=== PATIENT | male | born 1965 | race Caucasian/White ===

== ENCOUNTER 2019-04-01 13:59 | Emergency (ER) | payer BC, SELFPAY ==
--- NOTE | ~2019-04-01 | XR_ITS ---
EXAMINATION: XR chest 2V DATE: 04/01/2019 14:37 INDICATION: Shortness of breath. TECHNIQUE: Frontal and lateral views of the chest were obtained. COMPARISON: Chest 2 views 06/16/2012 FINDINGS: The chest demonstrates clear lungs without pneumonia, pleural effusion, or pneumothorax. Th e heart size is normal. There are changes of heart valve replacement. IMPRESSION: 1. No acute cardiopulmonary disease. Reviewed, dictated and finalized at location A. CHER [employer] FEEDER
[2019-04-01 14:04] VITALS: BP 174/107; PULSE 93; RESP 16; TEMP 36.8; O2SAT 97
[2019-04-01 14:12] VITALS: PULSE 85
--- NOTE | 2019-04-01 14:19 | ECG_ITS ---
Measurements Intervals [place] Rate: 89 P: 38 WV: 270 QRS: 22 QRSD: 92 T: 28 QT: 356 QTc: 433 Interpretive Statements SINUS RHYTHM WITH FIRST DEGREE AV BLOCK POSSIBLE LEFT ATRIAL ENLARGEMENT ABNORMAL ECG Electronically Signed On 04-01-2019 19:38:52 RATING EXAMINER by Gt Lozada D.O.
--- NOTE | 2019-04-01 14:21 | ED.SOB ---
HPI - SOB/Dyspnea General Chief Complaint: Shortness of Breath/Dyspnea Stated Complaint: diff breathing Time Seen by Provider: 04/01/19 14:19 Source: patient Mode of arrival: ambulatory Limitations: no limitations History of Present Illness HPI Narrative: Pt is a 53 y/o male who presents to the ED with c/o SOB that started this morning. He notes that he has been having sinus congestion and drainage for the last week. Pt reports associated dry coughs and dry heaves. He denies CP, chest discomfort, ABD pain, or urinary Sx. Pt has a h/o a mechanical mitral valve and HTN. He saw his painting technician, Dr. Chavez 3 weeks ago and was started on a HTN medication. He denies a h/o asthma or COPD. Pt takes Warfarin as his anticoagulation therapy. He notes that his BLE are swollen as well. MD elicited complaint: shortness of breath Onset (ago): hour(s) (this morning) Context: recent illness (sinus congestion/drainage) Associated symptoms: cough and other (dry heaves) Related Data Home Medications Medication Instructions Recorded Confirmed lisinopril 04/01/19 warfarin 04/01/19 Allergies Allergy/AdvReac Type Severity Reaction Status Date / Time No Known Allergies Allergy Unknown Unverified 04/01/19 14:10 Review of Systems Review of Systems: All systems reviewed & are unremarkable except as noted in HPI and below Cardiovascular: Cardiovascular: Denies chest pain and Denies other (chest discomfort) Respiratory: Respiratory: Reports cough and Reports dyspnea Gastrointestinal: Gastrointestinal: Denies abdominal pain and Reports other (dry heaves) Genitourinary: Genitourinary: Denies other (urinary Sx) [facility] Past Medical History Medical History Afib Kidney stones On warfarin therapy Surgical History Surgical History H/O inguinal hernia repair H/O mitral valve replacement with mechanical valve Hx of tonsillectomy Family History Family History (Updated 07/31/17 @ 08:54 by DOCTOR UNKNOWN) Father Diabetes mellitus, Onset Age: 65 Family history of alcoholism, Onset Age: 65 Sibling Diabetes mellitus Hypertension Mother Family history of malignant neoplasm of breast in first degree relative, Onset Age: 70 Social History Social History (Reviewed 04/01/19 @ 14:37 by Bao Bettencourt Smoking status: Never smoker Alcohol intake: current Gender identity (if verbalized by the patient): Male Exam Narrative: Exam Narrative: GENERAL: Well-appearing, well-nourished, and in no acute distress. HEAD: Normocephalic, atraumatic. EYES: PERRLA and EOMI. ENT: Nares clear, no rhinorrhea or epistaxis. Mucous membranes moist. NECK: Supple. CHEST: Clear to auscultation. No respiratory distress. HEART: Regular rate and rhythm. No murmur heard. Normal peripheral pulses. ABDOMEN: Soft, nontender, nondistended, normal active bowel sounds. EXTREMITIES: Normal range of motion. No edema. SKIN: Warm, dry, no rash. NEURO: No focal deficits. Alert and oriented x3. PSYCH: Normal mood and affect. Course Course Emergency Course: Patient still remains asymptomatic, I did explain to him about his lab work, chest x-ray findings. At this time I do not see any obvious CHF or pneumonia. Symptoms more so consistent with bronchospasm from viral syndrome. Advised him to use inhalers as prescribed. Follow-up with his primary doctor. Vital Signs Vital signs: Vital Signs Temperature 36.8 C 04/01/19 14:04 Pulse Rate 93 04/01/19 14:04 Respiratory Rate 16 04/01/19 14:04 Blood Pressure 174/107 H 04/01/19 14:04 Pulse Oximetry 97 04/01/19 14:04 Temperature 36.8 C 04/01/19 14:04 Pulse Rate 90 04/01/19 15:10 Respiratory Rate 18 04/01/19 15:10 Blood Pressure 154/90 H 04/01/19 15:10 Pulse Oximetry 96 04/01/19 15:10 MDM - SOB/Dyspnea Lab Data Result diagrams: 04/01/19 14:21
[2019-04-01 14:25] VITALS: BP 167/103; PULSE 81; RESP 13; O2SAT 97
[2019-04-01 14:32] LABS: Basophils Percent Auto 0.3 % (0.2-1.2); Eosinophils Absolute Auto 0.1 K/mm3 (0-0.3); Eosinophils Percent Auto 1.3 % (0-4.4); Hematocrit 41.4 % (42.0-52.0); Hemoglobin 13.9 g/dL (14.0-18.0); Immature Granulocyte Absolute 0.02 K/mm3 (0.00-0.031); Immature Granulocyte Percent A 0.3 % (0-0.5); Lymphocytes Absolute Auto 1.96 K/mm3 (0.9-3.2); Lymphocytes Percent Auto 31.6 % (18.3-44.2); Mean Corpuscular HGB Conc 33.6 g/dl (32-36); Mean Corpuscular Hemoglobin 29.9 pg (26-34); Mean Platelet Volume 10.2 fl (7.4-10.4); Monocytes Absolute Auto 0.5 K/mm3 (0.1-0.6); Monocytes Percent Auto 8.5 % (2.6-8.5); Neutrophils Absolute Auto 3.6 K/mm3 (1.3-6.7); Platelet Count Result 205 k/mm3 (150-375); Red Blood Count 4.65 M/mm3 (4.6-6.20); Red Cell Distribution Width 12.5 % (11.5-14.5); White Blood Count 6.2 K/mm3 (4.5-10.0)
[2019-04-01 14:43] LABS: Blood Urea Nitrogen 15 mg/dL (9-20); Calcium 9.4 mg/dL (8.4-10.2); Carbon Dioxide 28 mmol/L (22-30); Chloride 102 mmol/L (98-107); Estimated CRCL calculation 96 ml/min; Estimated Glomerular Filt Rate > 60; Glucose 99 mg/dL (75-110); Potassium 4.1 mmol/L (3.4-5.0); Sodium 139 mmol/L (137-145)
[2019-04-01 15:10] VITALS: BP 154/90; PULSE 90; RESP 18; O2SAT 96
[2019-04-01 15:35] LABS: INR 2.7; Prothrombin Time 27.8 Seconds (11.1-14.7)
[2019-04-01 15:46] LABS: NT Pro B Type Natriuretic Pept 28 PG/ML (5-100)
[2019-04-01 15:47] LABS: D Dimer 0.27 ug/mL (<0.48)
[2019-04-01 16:37] VITALS: BP 154/90; PULSE 72; RESP 18; O2SAT 98
== END 2019-04-01 16:52 | disposition home or self-care (01) ==
PROVIDERS: Emergency Provider Family Medicine; PCP Family Medicine
DX: J98.01 Acute bronchospasm (principal); B97.89 Other viral agents as the cause of diseases classified elsewhere; Z95.2 Presence of prosthetic heart valve; I48.91 Unspecified atrial fibrillation; Z79.01 Long term (current) use of anticoagulants; Z87.442 Personal history of urinary calculi; I44.0 Atrioventricular block, first degree; R94.31 Abnormal electrocardiogram [ECG] [EKG]
CPT/HCPCS: 36415; 71046; 80048; 83880; 85025; 85380; 85610; 93005; 99284

== ENCOUNTER 2020-10-19 10:02 | Emergency (ER) | payer BC, SELFPAY ==
--- NOTE | 2020-10-19 10:07 | ED.BACK ---
HPI - Back Pain/Injury General Chief Complaint: Back Pain/Injury Stated Complaint: BACK PAIN Time Seen by Provider: 10/19/20 10:08 Source: patient, RN notes reviewed and old records reviewed Mode of arrival: ambulatory Limitations: no limitations History of Present Illness HPI Narrative: 55-year-old male presents to the [facility] with complaints of back pain since yesterday. Patient states that he was turning on a light switch when he felt a pull in the back. No loss or retention of bowel or bladder. No numbness or tingling in extremities. No treatment prior to arrival. Denies chest pain or abdominal pain. No nausea vomiting or diarrhea. No blurry vision or change in vision. Denies headaches. MD elicited complaint: back pain Pertinent past history: prior back pain Related Data Home Medications Medication Instructions Recorded Confirmed lisinopril 04/01/19 warfarin 04/01/19 Allergies Allergy/AdvReac Type Severity Reaction Status Date / Time No Known Allergies Allergy Unknown Unverified 04/01/19 14:10 Review of Systems Review of Systems: All systems reviewed & are unremarkable except as noted in HPI and below Constitutional: Constitutional: Reports no additional constitutional complaints, Denies fever(s) and Denies weakness Eyes: Eyes: Reports no additional eye complaints ENT: Reports system reviewed and no additional complaints, except as documented Cardiovascular: Cardiovascular: Reports no additional cardiovascular complaints and Denies chest pain Respiratory: Respiratory: Reports no additional respiratory complaints, Denies cough and Denies dyspnea Gastrointestinal: Gastrointestinal: Reports no additional gastrointestinal complaints, Denies abdominal pain, Denies nausea and Denies vomiting Musculoskeletal: Musculoskeletal: Reports as per HPI and Reports back pain Integumentary/Breasts: Skin/Breast: Reports system reviewed and no additional complaints, except as docu, Denies erythema and Denies rash Neurologic: Reports system reviewed and no additional complaints, except as documented, Denies headache(s), Denies focal weakness, Denies numbness and Denies weakness Psychiatric: Psychiatric: Reports no additional psychiatric complaints Allergic/Immunologic: Allergic/Immunologic: Reports no additional allergic/immunologic complaints PMFSH Past Medical History Medical History Afib Hypertension Kidney stones On warfarin therapy Surgical History Surgical History H/O inguinal hernia repair H/O mitral valve replacement with mechanical valve Hx of tonsillectomy Family History Family History Father Diabetes mellitus, Onset Age: 65 Family history of alcoholism, Onset Age: 65 Sibling Diabetes mellitus Hypertension Mother Family history of malignant neoplasm of breast in first degree relative, Onset Age: 70 Social History Social History Smoking status: Never smoker Alcohol intake: current Gender identity (if verbalized by the patient): Male Comments At the time of my signature, I reviewed and agree with the nursing past medical, surgical, social, and family history. There is no relevant family history pertinent to the patient complaint. Exam Const: General: healthy appearing, no acute distress and alert Nutritional Appearance: well nourished Orientation/consciousness: patient oriented x3 Limitations: no limitations HENMT: Head: normal to inspection Eyes: Conjunctivae: conjunctivae normal Pupils: Equal, round and reactive pupils present Neck: Neck: normal visual inspection, no lymphadenopathy and no meningeal signs Chest: Chest palpation & inspection: normal inspection of the chest Resp: Effort & Inspection: normal respiratory effort and no use of accessory
[2020-10-19 10:10] VITALS: BP 170/84; PULSE 63; RESP 16; TEMP 36.4; O2SAT 100
[2020-10-19 10:11] VITALS: BP 170/84; PULSE 63; RESP 16; TEMP 36.4; O2SAT 100
== END 2020-10-19 10:26 | disposition home or self-care (01) ==
PROVIDERS: Emergency Provider Nurse Practitioner; PCP Family Medicine
DX: S39.012A Strain of muscle, fascia and tendon of lower back, initial encounter (principal); X58.XXXA Exposure to other specified factors, initial encounter; I48.91 Unspecified atrial fibrillation; I10 Essential (primary) hypertension; Z79.01 Long term (current) use of anticoagulants; Z95.2 Presence of prosthetic heart valve
CPT/HCPCS: 99213; G0463

== ENCOUNTER 2021-12-11 10:58 | Emergency (ER) | payer BC, SELFPAY ==
[2021-12-11 11:05] VITALS: BP 153/101; PULSE 73; RESP 16; TEMP 36.7; O2SAT 98
--- NOTE | 2021-12-11 11:07 | ED.GENADULT ---
HPI - General Adult General Chief complaint: Unspecified Stated complaint: face swelling Time Seen by Provider: 12/11/21 11:09 Mode of arrival: ambulatory Limitations: no limitations History of Present Illness HPI narrative: 56-year-old male presents with concern for 3-day history of right-sided facial swelling. He reports he has been taking Benadryl every 6 hours yesterday with some improvement to the swelling of the right sided face, however under the eye remains swollen. He denies any pain. He denies dental pain or trauma. He denies swollen lips, swollen tongue, trouble breathing, itching, rash. Denies any history of allergic reactions. He reports trouble swallowing, drooling. He denies vision changes, eye pain, drainage from the eye. He denies any warmth, redness, discoloration. MD complaint: Facial swelling Related Data Home Medications Medication Instructions Recorded Confirmed lisinopril 10 mg tablet 04/01/19 warfarin 5 mg tablet 04/01/19 Allergies Allergy/AdvReac Type Severity Reaction Status Date / Time No Known Allergies Allergy Unknown Unverified 04/01/19 14:10 Review of Systems Review of Systems: CONSTITUTIONAL: Denies malaise, chills, sweats, or fever. EYES: Denies visual changes, redness, or discharge. ENT: Denies rhinorrhea, congestion, sinus pain, otalgia or sore throat. Reports right-sided facial swelling CARDIOVASCULAR: Denies chest pain, palpitations, or edema. RESPIRATORY: Denies dyspnea. GASTROINTESTINAL: Denies nausea, vomiting, diarrhea SKIN: Denies rash or itching. MUSCULOSKELETAL: Denies musculoskeletal pain or myalgia. NEUROLOGIC: Denies numbness, weakness, or headache. All systems reviewed & are unremarkable except as noted in HPI and below [facility] Past Medical History Medical History Afib Hypertension Kidney stones On warfarin therapy Surgical History Surgical History H/O inguinal hernia repair H/O mitral valve replacement with mechanical valve Hx of tonsillectomy Family History Family History Father Diabetes mellitus, Onset Age: 65 Family history of alcoholism, Onset Age: 65 Sibling Diabetes mellitus Hypertension Mother Family history of malignant neoplasm of breast in first degree relative, Onset Age: 70 Social History Social History Smoking status: Never smoker Alcohol intake: current Gender identity (if verbalized by the patient): Male Comments At time of signature, agree with nursing past medical, surgical, social and family history. There is no relevant family history pertinent to the presenting complaint Exam Narrative: GENERAL: Well-appearing, well-nourished, and in no acute distress. HEAD: Normocephalic, atraumatic. EYES: PERRLA, sclera clear, and EOMI. No nystagmus. Soft superficial edema noted below the right eye, no periorbital edema noted ENT: Nares clear, turbinates pink, no rhinorrhea or epistaxis. Mucous membranes moist. TM pearly poe with sharp light reflex bilaterally; no tragal tenderness. Oropharynx without erythema or lesions. Tonsils not enlarged and without exudate. No obstructed salivary gland noted. Mild superficial edema noted to the right face, mild tenderness upon palpation to the mid cheek near the teeth NECK: Supple. No lymphadenopathy. No jugular venous distension, thyromegaly, or carotid bruits. Carotids were easily palpable bilaterally. CHEST: No respiratory distress. Clear to auscultation. No bony deformities, no asymmetry. Speaks in full sentences. HEART: Regular rate and rhythm. No murmur heard. Normal peripheral pulses. ABDOMEN: Soft, nontender, nondistended, normal active bowel sounds, no palpable masses. EXTREMITIES: Normal range of motion. No edema. Normal strength and sensation. SKIN: Warm,
[2021-12-11] MEDS: methylPREDNISolone SOD SUCC 125 MG VIAL IM (11:21)
== END 2021-12-11 11:44 | disposition home or self-care (01) ==
PROVIDERS: Emergency Provider Nurse Practitioner
DX: R22.0 Localized swelling, mass and lump, head (principal); I48.91 Unspecified atrial fibrillation; I10 Essential (primary) hypertension; Z79.01 Long term (current) use of anticoagulants
CPT/HCPCS: 96372; 99213; G0463; J2930

== ENCOUNTER 2022-02-26 11:38 | Emergency (ER) | payer BC, SELFPAY ==
[2022-02-26 13:01] VITALS: BP 157/96; PULSE 78; RESP 16; TEMP 37.6; O2SAT 98
--- NOTE | 2022-02-26 13:33 | ED.URI ---
HPI - URI/Sore Throat General Chief Complaint: Upper Respiratory Infection Stated Complaint: fever, dizzy,cough Time Seen by Provider: 02/26/22 13:46 Source: patient and RN notes reviewed Mode of arrival: ambulatory Limitations: no limitations History of Present Illness HPI Narrative: 56 year old male presents with concern for cough, chest congestion, chest tightness. Reports symptoms started about 4 days ago and not improving. He reports he taking Robitussin. MD elicited complaint: fever and cough Related Data Home Medications Medication Instructions Recorded Confirmed lisinopril 10 mg tablet 10 mg PO DAILY 04/01/19 warfarin 5 mg tablet 5 mg PO DAILY 04/01/19 02/26/22 Allergies Allergy/AdvReac Type Severity Reaction Status Date / Time No Known Allergies Allergy Unknown Unverified 02/26/22 13:37 Review of Systems Review of Systems: CONSTITUTIONAL: Reports malaise, fever. EYES: Denies visual changes, redness, or discharge. ENT: Denies rhinorrhea, congestion, sinus pain, otalgia and sore throat. CARDIOVASCULAR: Denies chest pain, palpitations, or edema. RESPIRATORY: Reports cough, chest congestion. Denies dyspnea. GASTROINTESTINAL: Denies abdominal pain, nausea, vomiting, diarrhea SKIN: Denies rash or itching. MUSCULOSKELETAL: Reports myalgia. NEUROLOGIC: Denies headache. All systems reviewed & are unremarkable except as noted in HPI and below PMFSH Past Medical History Medical History Afib Hypertension Kidney stones On warfarin therapy Surgical History Surgical History H/O inguinal hernia repair H/O mitral valve replacement with mechanical valve Hx of tonsillectomy Family History Family History Father Diabetes mellitus, Onset Age: 65 Family history of alcoholism, Onset Age: 65 Sibling Diabetes mellitus Hypertension Mother Family history of malignant neoplasm of breast in first degree relative, Onset Age: 70 Social History Social History Smoking status: Never smoker Alcohol intake: current Gender identity (if verbalized by the patient): Male Comments At time of signature, agree with nursing past medical, surgical, social and family history. There is no relevant family history pertinent to the presenting complaint Exam Narrative: GENERAL: Nontoxic. And in no acute distress. HEAD: Normocephalic EYES: PERRLA, conjunctivae clear ENT: Nares clear. Mucous membranes moist. TM pearly poe with dull light reflex bilaterally; no tragal tenderness. Oropharynx not erythematous without lesions. Tonsils not enlarged and without exudate, no drooling, no hoarseness, no trismus, uvula midline. NECK: Supple. No lymphadenopathy CHEST: Clear to auscultation, breath sounds diminished on the left upper and lower. No wheezing, rhonchi, rales, or stridor. No respiratory distress, speaks in full sentences. HEART: Regular rate and rhythm. No murmur heard. SKIN: Warm, dry, no rash. NEURO: Alert and oriented x3. PSYCH: Normal mood and affect Course Course Emergency Course: Patient is aware of diagnosis, understands and agrees to treatment plan. Anticipatory guidance given. Patient agrees to follow-up as directed and is aware of reasons to seek care at the emergency department. Portions of this record may have been created with voice recognition software Level of Care: Express Care Visit Vital Signs Vital signs: Vital Signs Temperature 99.7 F H 02/26/22 13:01 Pulse Rate 78 02/26/22 13:01 Respiratory Rate 16 02/26/22 13:01 Blood Pressure 157/96 H 02/26/22 13:01 Pulse Oximetry 98 02/26/22 13:01 Temperature 99.7 F H 02/26/22 13:01 Pulse Rate 78 02/26/22 13:01 Respiratory Rate 16 02/26/22 13:01 Blood Pressure 157/96 H 02/26/22 13:01 Pulse Oximetry 98
== END 2022-02-26 13:56 | disposition home or self-care (01) ==
PROVIDERS: Emergency Provider Nurse Practitioner; PCP Physician Assistant
DX: J06.9 Acute upper respiratory infection, unspecified (principal); I48.91 Unspecified atrial fibrillation; I10 Essential (primary) hypertension; Z79.01 Long term (current) use of anticoagulants; Z95.2 Presence of prosthetic heart valve
CPT/HCPCS: 87804; 99213; G0463

== ENCOUNTER → 2023-05-03 11:07 | Outpatient (CLI) | payer OTHER, SELFPAY ==
--- NOTE | ~2023-05-03 | XR_ITS ---
EXAMINATION: XR hip RT 2V w AP pelvis DATE: 05/03/2023 11:27 INDICATION: Low back pain. Right hip pain. TECHNIQUE: An anteroposterior view of the pelvis and 2 views of right hip were obtained. COMPARISON: None. FINDINGS: Bone alignment is normal. No fracture. There is severe osteoarthritis of the hips. IMPRESSION: 1. Severe osteoarthritis of the hips. Reviewed, dictated and finalized at location A. IRON DIPPER
--- NOTE | ~2023-05-03 | XR_ITS ---
EXAMINATION: XR lumbar spine 2-3V DATE: 05/03/2023 11:27 INDICATION: Low back pain TECHNIQUE: Anteroposterior and lateral views of the lumbar spine, and cone-down lateral view of the l umbosacral junction were obtained. COMPARISON: None. FINDINGS: Bone alignment is normal. There is no fracture. There are 5 degrees of lumbar levocurvature . The vertebral body heights are maintained. There is mild loss of intervertebral disc space height a t L4-5. There is severe facet joint osteoarthritis of the mid and lower lumbar spine. An IVC filter i s noted. IMPRESSION: 1. Moderate lower lumbar spondylosis. Reviewed, dictated and finalized at location F. COLLECTION ASSOCIATE
== END ==
PROVIDERS: PCP Physician Assistant; Visit Provider Physician Assistant
DX: M47.896 Other spondylosis, lumbar region (principal); M16.0 Bilateral primary osteoarthritis of hip
CPT/HCPCS: 72100; 73502

== ENCOUNTER 2023-09-10 09:00 | Emergency (ER) | payer OTHER, SELFPAY ==
[2023-09-10 09:12] VITALS: O2SAT 97
--- NOTE | 2023-09-10 09:12 | ED.GENADULT ---
HPI - General Adult General Chief complaint: Upper Respiratory Infection Stated complaint: SOB Time Seen by Provider: 09/10/23 09:15 Source: patient, RN notes reviewed and old records reviewed Mode of arrival: ambulatory Limitations: no limitations History of Present Illness HPI narrative: patient with history of mitral valve replacement, atrial fibrillation, follows with Dr. Baumann for Cardiology, presents to [facility] with complaints of shortness of breath, leg swelling and fatigue worsening over the past week. He reports that he now has to sleep sitting up. States last night was worst his symptoms have been. He is not complaining of any chest pain. He reports symptoms worsened when lying down. He is compliant with warfarin, reports that he checked INR last night and it was 3.6. He does report that he has been having heart rate in the 30s and 40s for the past couple of days. Reports normal heart rate for him is 60-70. He is denying any chest pain on arrival. He is noted to be pale, clammy. 2+ edema bilateral lower extremities. Spouse is present Related Data Home Medications Medication Instructions Recorded Confirmed lisinopril 10 mg tablet 10 mg PO DAILY 04/01/19 05/03/23 warfarin 5 mg tablet 5 mg PO DAILY 04/01/19 05/03/23 Allergies Allergy/AdvReac Type Severity Reaction Status Date / Time No Known Allergies Allergy Unknown Verified 05/03/23 10:33 Review of Systems Review of Systems: All systems reviewed & are unremarkable except as noted in HPI and below Constitutional: Constitutional: Reports no additional constitutional complaints, Reports fatigue, Reports lethargy and Reports malaise ENT: Reports system reviewed and no additional complaints, except as documented and Reports dizziness Cardiovascular: Cardiovascular: Reports no additional cardiovascular complaints, Reports irregular heart rhythm, Reports lightheadedness, Reports dyspnea and Reports orthopnea Respiratory: Respiratory: Reports no additional respiratory complaints, Denies chest congestion and Reports dyspnea Gastrointestinal: Gastrointestinal: Reports no additional gastrointestinal complaints Hematologic/Lymphatic: Hematologic/Lymphatic: Reports as per HPI [facility] Past Medical History Medical History Afib Hypertension Kidney stones On warfarin therapy Surgical History Surgical History H/O inguinal hernia repair H/O mitral valve replacement with mechanical valve Hx of tonsillectomy Family History Family History Father Diabetes mellitus, Onset Age: 65 Family history of alcoholism, Onset Age: 65 Sibling Diabetes mellitus Hypertension Mother Family history of malignant neoplasm of breast in first degree relative, Onset Age: 70 Social History Social History Smoking status: Never smoker Alcohol intake: current Substance use type: does not use Lack of Transportation: No Lack of Food: Never True Current Housing: I Have Housing Concerned About Future Housing: No Difficulty Paying Gas/Electric Bills: No Difficulty Paying for Meds: No Currently Unemployed: No Education: High School Diploma/GED Difficulty w/ Childcare or Family Care: No Gender identity (if verbalized by the patient): Male Comments At the time of my signature, I reviewed and agree with the nursing past medical, surgical, social, and family history. There is no relevant family history pertinent to the patient complaint. Exam Const: General: cooperative, alert, awake, diaphoretic, ill appearing and obese Orientation/consciousness: oriented to person, oriented to place and oriented to time HENMT: Head: normal to inspection Resp: Effort & Inspection: normal respiratory effort and able to spea
--- NOTE | 2023-09-10 09:18 | ECG_ITS ---
Test Date: 2023-09-10 09:17:11 Measurements Intervals [place] Rate: 35 P: 0 NC: 0 QRS: 49 QRSD: 102 T: 21 QT: 509 QTc: 392 Interpretive Statements ATRIAL FLUTTER/TACHYCARDIA WITH SLOW VENTRICULAR RESPONSE ABNORMAL ECG No previous ECG available for comparison Electronically Signed On 09-10-2023 12:23:40 CDT by Gt Lozada D.O.
--- NOTE | 2023-09-10 09:22 | ECG_ITS ---
Test Date: 2023-09-10 10:03:28 Measurements Intervals [place] Rate: 44 P: 0 CO: 0 QRS: 46 QRSD: 100 T: -21 QT: 500 QTc: 432 Interpretive Statements ATRIAL FLUTTER/TACHYCARDIA WITH SLOW VENTRICULAR RESPONSE ABNORMAL ECG No previous ECG available for comparison Electronically Signed On 09-10-2023 10:22:09 CDT by Gt Lozada D.O.
[2023-09-10 09:29] VITALS: BP 189/95; PULSE 36; RESP 18; TEMP 36.2; O2SAT 100
[2023-09-10 09:31] VITALS: BP 229/94; PULSE 36; RESP 18; TEMP 36.4; O2SAT 100
== END 2023-09-10 09:30 | disposition short-term general hospital (02) ==
PROVIDERS: Emergency Provider Nurse Practitioner Family; PCP Physician Assistant
DX: I48.92 Unspecified atrial flutter (principal); I10 Essential (primary) hypertension; Z79.01 Long term (current) use of anticoagulants
CPT/HCPCS: 93005; 99215; G0463

== ENCOUNTER 2023-09-10 09:57 | Inpatient (IN) | payer OTHER, SELFPAY ==
[2023-09-10] VITALS (19 sets, daily range): BP systolic 166–207; BP diastolic 65–91; PULSE 32–58; RESP 12–24; TEMP 35.9–36.9; O2SAT 97–99; BMI 42.4
--- NOTE | 2023-09-10 | ECHO_ITS ---
Patient Info Name: Orlando Navarro Age: 58 years : 1965 Gender: Male Ht: 75 in Wt: 339 lbs BSA: 2.92 m2 HR: 35 bpm BP: 182 / 70 mmHg Heart Rhythm: Atrial Flutter Technical Quality: Fair Exam Date: 09/10/2023 4:02 PM Exam Location: Echo Lab Patient Status: Inpatient Admit Date: 09/10/2023 Staff Ordering Physician: Carol Huizar [employer] Service Technician: Calvin Young RDCS Attending Provider: Antwon Horowitz DO Referring Physician: Gaye COLE; Exam Type: CA echo doppler color flow Study Info Indications R00.1 - Bradycardia, unspecified Complete two-dimensional, color flow and Doppler transthoracic echocardiogram is performed. Summary 1. Complete two-dimensional, color flow and Doppler transthoracic echocardiogram is performed. 2. Left ventricular chamber dimension is moderately enlarged. 3. Left ventricular systolic function is normal, estimated at 60-65%. 4. There is no increased left ventricular wall thickness. 5. The left ventricular diastolic function is grade II diastolic dysfunction. 6. Left atrial chamber dimension is mildly enlarged. 7. The mechanical mitral valve leaflefts are normal. 8. There is mild tricuspid valve regurgitation. 9. Mild pulmonary hypertension, estimated pulmonary arterial systolic pressure is 38 mmHg. Left Ventricle Left ventricular chamber dimension is moderately enlarged. Left ventricular systolic function is normal, estimated at 60-65%. There is no increased left ventricular wall thickness. The left ventricular diastolic function is grade II diastolic dysfunction. Right Ventricle Right ventricular chamber dimension is normal. Right ventricular systolic function is normal. Left Atria Left atrial chamber dimension is mildly enlarged. Right Atria Right atrial chamber dimension is normal. Atrial Septum Intact interatrial septum visualized by color flow imaging. Aortic Valve The aortic valve is trileaflet. There is mild aortic valve sclerosis. There is no aortic valve stenosis. There is trace aortic valve regurgitation. Pulmonic Valve The pulmonic valve is normal. There is no pulmonic valve stenosis. There is trace pulmonic regurgitation. Mitral Valve The mechanical mitral valve leaflefts are normal. There is no stenosis of the mechanical mitral valve. There is trace regurgitation of the mechanical mitral valve. Tricuspid Valve The tricuspid valve leaflets are normal. There is no significant tricuspid valve stenosis. There is mild tricuspid valve regurgitation. Mild pulmonary hypertension, estimated pulmonary arterial systolic pressure is 38 mmHg. Pericardium/Pleural The pericardium appears normal. There is no pericardial effusion. Inferior Vena Cava Normal inferior vena cava with >50% collapse upon inspiration consistent with normal right atrial pressure, 10 mmHg. Aorta The aortic root size at the sinus of Valsalva is normal. The prox ascending aorta size is normal. Left Ventricular Outflow Tract Name Value Normal LVOT 2D LVOT Diameter 2.2 cm LVOT Doppler LVOT Peak Gradient 6 mmHg LVOT Mean Gradient 2 mmHg LVOT VTI 25 cm LVOT
--- NOTE | ~2023-09-10 | XR_ITS ---
XR chest 1V portable Ordering provider: Jorge L Ernst MD History: 58 years Male with . Bradycardia . Comparison: April 01, 2019 FINDINGS: MEDIASTINUM: The cardiac silhouette is slightly enlarged. Postoperative changes. Congestive carolin. LUNGS: Bilateral interstitial changes. Prominent markings bilaterally. No effusion or pneumothorax. OTHER: No free air under the diaphragm. Degenerative changes of the spine. IMPRESSION: Prominent markings bilaterally with with interstitial thickening suggestive of pulmonary edema. Super imposed pneumonitis is not excluded. Reviewed, dictated and finalized at location A. IMPRESSION: Prominent markings bilaterally with with interstitial thickening suggestive of pulmonary edema. Superimposed pneumonitis is not excluded.
--- NOTE | 2023-09-10 10:03 | ECG_ITS ---
Test Date: 2023-08-24 21:10:48 Measurements Intervals [place] Rate: 44 P: 0 OK: 0 QRS: 46 QRSD: 100 T: -21 QT: 500 QTc: 432 Interpretive Statements ATRIAL FLUTTER/TACHYCARDIA WITH SLOW VENTRICULAR RESPONSE ABNORMAL ECG Electronically Signed On 09-10-2023 10:22:09 CDT by Gt Lozada D.O. No previous ECG available for comparison [facility]
[2023-09-10 10:39] LABS: Basophils Percent Auto 0.7 % (0.2-1.2); Eosinophils Absolute Auto 0.1 K/mm3 (0-0.3); Eosinophils Percent Auto 2.6 % (0-4.4); Hematocrit 37.4 % (42.0-52.0); Hemoglobin 12.8 g/dL (14.0-18.0); Immature Granulocyte Absolute 0.01 K/mm3 (0.00-0.031); Immature Granulocyte Percent A 0.2 % (0-0.5); Lymphocytes Absolute Auto 1.17 K/mm3 (0.9-3.2); Lymphocytes Percent Auto 27.7 % (18.3-44.2); Mean Corpuscular HGB Conc 34.2 g/dl (32-36); Mean Corpuscular Hemoglobin 31.3 pg (26-34); Mean Corpuscular Volume 91.4 fl (80-100); Mean Platelet Volume 10.8 fl (7.4-10.4); Monocytes Absolute Auto 0.5 K/mm3 (0.1-0.6); Monocytes Percent Auto 10.7 % (2.6-8.5); Neutrophils Absolute Auto 2.5 K/mm3 (1.3-6.7); Neutrophils Percent Auto 58.1 % (45.5-73.1); Platelet Count Result 172 k/mm3 (150-375); Red Blood Count 4.09 M/mm3 (4.6-6.20); White Blood Count 4.2 K/mm3 (4.5-10.0)
[2023-09-10 10:45] LABS: Alanine Aminotransferase 34 U/L (6-50); Albumin Level 4.2 g/dL (3.5-5.1); Alkaline Phosphatase 51 U/L (38-126); Anion Gap 8 mmol/L (4-12); Aspartate Amino Transferase 29 U/L (17-59); Bilirubin,Total 0.5 mg/dL (0.2-1.3); Blood Urea Nitrogen 20 mg/dL (9-20); Calcium 8.5 mg/dL (8.4-10.2); Carbon Dioxide 23 mmol/L (22-30); Chloride 108 mmol/L (98-107); Estimated CRCL calculation 103 ml/min; Estimated Glomerular Filt Rate > 60; Glucose 110 mg/dL (65-110); Magnesium 2.1 mg/dL (1.6-2.3); Sodium 139 mmol/L (137-145)
--- NOTE | 2023-09-10 11:26 | PC.NURSE ---
Pt informed about needing a urine sample. States he is unable to go. This Rn educated about the time frame for the order, pt attempted to provide sample without success, requesting water. approved of water for pt. Educated pt again about the amount needed for sample and to let staff know at the earliest ability to provide urine sample.
--- NOTE | 2023-09-10 11:38 | ED.SOB ---
HPI - SOB/Dyspnea General Chief Complaint: Shortness of Breath/Dyspnea Stated Complaint: SOB, low heart rate History of Present Illness HPI Narrative: This is a 58-year-old male, with history of AFib on Coumadin, mechanical mitral valve replacement and hypertension, presents by EMS from an urgent care for shortness of breath and lightheadedness. The patient states over the past 3 days, he has noted shortness of breath with physical exertion and intermittent lightheadedness. He states his symptoms worsen during sleep. He also states he has noticed bilateral lower extremity swelling. He denies chest pain, loss of consciousness, weakness or numbness. He has no other complaints at this time. Related Data Home Medications Medication Instructions Recorded Confirmed lisinopril 10 mg tablet 10 mg PO DAILY 04/01/19 09/10/23 warfarin 5 mg tablet 5 mg PO DAILY 04/01/19 09/10/23 Allergies Allergy/AdvReac Type Severity Reaction Status Date / Time No Known Allergies Allergy Unknown Verified 05/03/23 10:33 Review of Systems Review of Systems: All systems reviewed & are unremarkable except as noted in HPI and below PMFSH Past Medical History Medical History Afib Hypertension Kidney stones On warfarin therapy Surgical History Surgical History H/O inguinal hernia repair H/O mitral valve replacement with mechanical valve Hx of tonsillectomy Family History Family History Father Diabetes mellitus, Onset Age: 65 Family history of alcoholism, Onset Age: 65 Sibling Diabetes mellitus Hypertension Mother Family history of malignant neoplasm of breast in first degree relative, Onset Age: 70 Social History Social History Smoking status: Never smoker Alcohol intake: current Substance use type: does not use Lack of Transportation: No Lack of Food: Never True Current Housing: I Have Housing Concerned About Future Housing: No Difficulty Paying Gas/Electric Bills: No Difficulty Paying for Meds: No Currently Unemployed: No Education: High School Diploma/GED Difficulty w/ Childcare or Family Care: No Gender identity (if verbalized by the patient): Male Exam Narrative: GENERAL: Well-developed, well-nourished, and in no acute distress. HEAD: Normocephalic, atraumatic. EYES: PERRLA and EOMI. NECK: Supple. No JVD CHEST: Rales noted in the bilateral lower lung vargas posteriorly. No respiratory distress. No wheezes or rhonchi HEART: Bradycardic with regular rhythm. No murmur heard. Normal peripheral pulses. ABDOMEN: Soft, nontender, nondistended, normal active bowel sounds. EXTREMITIES: Normal range of motion. Bilateral lower extremity edema 1+ SKIN: Warm, dry, no rash. NEURO: Alert and oriented x3. No focal deficit. Moving all 4 limbs spontaneously PSYCH: Normal mood and affect. Course Course Emergency Course: 11:38 - CBC demonstrates mild anemia with hemoglobin of 12.8 and mildly decreased white blood cell count of 4.2 but is otherwise unremarkable. Chemistries unremarkable. Initial troponin 0.02. Chest x-ray demonstrates pulmonary edema without other acute cardiopulmonary process while monitored here, the patient remains in a flutter with a ventricular rate in the 30s to 40s. Considering the patient's symptoms, I discussed him with door maker, NICK Huizar who agrees to consult. Will give Lasix for pulmonary edema. I discussed the patient with hospitalist, Dr. Horowitz who accepts admission. I discussed the recommendations findings with the patient, who voiced understanding and is comfortable with the plan. He wishes for our cardiology team to discuss placement of a pacemaker with his CT surgeon. All questions answered to his satisfaction. Vital Signs Vit
[2023-09-10] MEDS: FUROSEMIDE INJ 40 MG/4 ML VIAL IV PUSH (11:50)
[2023-09-10 12:34] LABS: Appearance Urine Clear (Clear); Bilirubin Urine Negative (Negative); Blood Urine Negative (Negative); Color Urine Yellow (Yellow); Glucose Urine UA Negative (Negative); Ketones Urine Negative (Negative); Leukocyte Esterase Ur Negative LEU/UL (Negative); Nitrate Urine Negative (Negative); Protein Urine Negative (Negative); Urobilinogen Urine 0.2 mg/dL (<2.0); pH Urine 5.5 (5.0-9.0)
[2023-09-10 12:48] LABS: Amphetamine Screen Urine Negative (Negative); Barbiturate Screen Urine Negative (Negative); Benzodiazepines Screen Urine Negative (Negative); Cannabinoid Screen Urine Negative (Negative); Cocaine Screen Urine Negative (Negative); Methadone Screen Urine Negative (Negative); Opiate Screen Urine Negative (Negative); Phencyclidine Screen Urine Negative (Negative)
--- NOTE | 2023-09-10 12:57 | ADMGEN ---
This patient, Orlando Navarro, was admitted to IMU Room 212-01. Patient/family oriented to hospital policies and general routines including ID bracelet, bed and alarms, visiting hours, pain management, procedures, bathroom and other care routines, personal items, smoking policy, room service/diet, and visiting hours. Information on how to activate the Rapid Response Team has been discussed. Patient/Family are encouraged to report perceived risks to care and to ask questions if they do not understand what they are told or what they should do.
[2023-09-10 13:17] LABS: NT Pro B Type Natriuretic Pept 1110 pg/mL (19.9-100)
[2023-09-10 13:31] LABS: Add Urine Microscopic? NO
[2023-09-10 13:33] LABS: Troponin I 0.017 ng/mL (0.000-0.034)
--- NOTE | 2023-09-10 14:22 | PM.CNCAR ---
Assessment and Plan Assessment and plan (1) Atrial flutter: Qualifiers: Atrial flutter type: unspecified Qualified Code(s): I48.92 - Unspecified atrial flutter Code(s): I48.92 - Unspecified atrial flutter Status: Acute Assessment and Plan: This is a new diagnosis. Unsure how long he has been in flutter as he is asymptomatic. His ventricular rate is generally in the mid 30-s-40's and he does not take any AV sampson agents. He does have appropriate HR response to activity. Will check a TSH and echo. He is maintaining a good blood pressure (actually he is quite hypertensive) and is asymptomatic. He is already anticoagulated with warfarin because of his mechanical mitral valve. (2) Shortness of breath: Code(s): R06.02 - Shortness of breath Status: Acute Assessment and Plan: Improved with one dose IV furosemide. His lungs sound clear on exam, don't think he needs further IV diuretic but will put him on furosemide 40mg daily for now. Echo is pending. Further recommendations to follow. History of Present Illness History of Present Illness Consult date/time: 09/10/23 14:22 Requesting physician: Jorge L Ernst MD Consult reason: Other (bradycardia) Reason For Visit: symptomatic bradycardia,pulmonary edema Narrative: Orlando Navarro is a 58 year old male with history of mechanical mitral valve replacement in 2012. He comes to the hospital with complaints of orthopnea and dyspnea with exertion. He began experiencing these symptoms about a week ago. He also reports an abrupt weight gain of about 15 lbs in one week. In the emergency department he was found to be in atrial flutter with slow ventricular response. Otherwise his workup was significant for NT-proBNP of 1100 and mild pulmonary edema on CXR. He was given IV furosemide in the emergency department and is already feeling better, able to lie flat with no orthopnea. He denies any chest pain, palpitations, syncope, pre-syncope. Review of Systems Review of Systems: All systems reviewed & are unremarkable except as noted in HPI and below PMFSH Past Medical History Medical History Afib Hypertension Kidney stones On warfarin therapy Surgical History Surgical History H/O inguinal hernia repair H/O mitral valve replacement with mechanical valve Hx of tonsillectomy Family History Family History Father Diabetes mellitus, Onset Age: 65 Family history of alcoholism, Onset Age: 65 Sibling Diabetes mellitus Hypertension Mother Family history of malignant neoplasm of breast in first degree relative, Onset Age: 70 Social History Social History Smoking status: Never smoker Alcohol intake: never Substance use: never Substance use type: does not use Do You Feel Safe in your Home?: Yes Lack of Transportation: No Lack of Food: Never True Current Housing: I Have Housing Concerned About Future Housing: No Difficulty Paying Gas/Electric Bills: No Difficulty Paying for Meds: No Currently Unemployed: No Education: High School Diploma/GED Difficulty w/ Childcare or Family Care: No Gender identity (if verbalized by the patient): Male Spiritual care concerns: No Meds Home Medications and Allergies Home Medications Medication Instructions Recorded Confirmed Type lisinopril 10 mg tablet 10 mg PO DAILY 04/01/19 09/10/23 History warfarin 5 mg tablet 10 mg PO DAILY 04/01/19 09/10/23 History Allergies Allergy/AdvReac Type Severity Reaction Status Date / Time No Known Allergies Allergy Unknown Verified 09/10/23 12:53 Vital Signs Vital Signs - 24 hr 09/10/23 09:57 09/10/23 09:53 09/10/23 09:53 Temperature 36.9 C Pulse Rate 45 L
--- NOTE | 2023-09-10 15:10 | PM.IMHP ---
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 Dillon, essential hypertension who presents to ED with complaints of dyspnea on exertion and orthopnea for last 10 days. Feels his symptoms have slowly gotten worse over last 10 days. He would wake up feeling very short of breath. When he gets up to urinate in the middle night he feels short of breath. He feels his exercise tolerance has gone down as well. Overlies they are to he noticed lower extremity edema. Patient had a mitral valve replaced after infected valve [address] Dillon. He gets yearly cardiology evaluations and echocardiograms, most recent being January 2023. He thinks he is due for another echocardiogram soon. He has had no recent med changes. He recently camped in [place] however did not have any tick bites bug bites. He has no sick contacts. In the ED: Patient was symptoms of dyspnea on exertion, BNP 1100, chest x-ray with pulmonary edema, he was given 40 mg IV Lasix for pulmonary edema and fluid overload. Patient's heart rate dropped to 30s and he was given a dose of atropine. Review of Systems Review of Systems: Constitutional: No Fever, No Chills, No Night Sweats, No Fatigue, No Malaise ENT/Mouth: No Hearing Changes, No Ear Pain, No Nasal Congestion, No Sinus Pain, No Hoarseness, No sore throat, No Rhinorrhea, No Swallowing Difficulty Eyes: No Eye Pain, No Redness, No Vision Changes Cardiovascular: He endorses lower extremity edema, orthopnea, paroxysmal nocturnal dyspnea. He denies chest pain or palpitations Respiratory: No Cough, No Sputum, No Wheezing, No Shortness of Breath Gastrointestinal: No Nausea, No Vomiting, No Diarrhea, No Constipation, No Abdominal Pain, No Heartburn, No Hematochezia, No Melena Genitourinary: No Dysuria, No Urinary Frequency, No Hematuria, No Urinary Incontinence, No Urgency Musculoskeletal: No Arthralgias, No Myalgias, No Joint Swelling, No Joint Stiffness, No Back Pain Skin: No Skin Lesions, No Pruritis, No Hair Changes Neuro: No Weakness, No Numbness, No Paresthesias, No Loss of Consciousness, No Syncope, No Dizziness, No Headache Psych: No Anxiety/Panic, No Depression, No Insomnia Heme: No Bruising, No Bleeding Lymph: No Adenopathy Endocrine: No Polyuria, No Polydipsia, No Temperature Intolerance [facility] Past Medical History Medical History Afib Hypertension Kidney stones On warfarin therapy Surgical History Surgical History H/O inguinal hernia repair H/O mitral valve replacement with mechanical valve Hx of tonsillectomy Family History Family History Father Diabetes mellitus, Onset Age: 65 Family history of alcoholism, Onset Age: 65 Sibling Diabetes mellitus Hypertension Mother Family history of malignant neoplasm of breast in first degree relative, Onset Age: 70 Social History Social History Smoking status: Never smoker Alcohol intake: never Substance use: never Substance use type: does not use Do You Feel Safe in your Home?: Yes Lack of Transportation: No Lack of Food: Never True Current Housing: I Have Housing Concerned About Future Housing: No Difficulty Paying Gas/Electric Bills: No Difficulty Paying for Meds: No Currently Unemployed: No Education: High School Diploma/GED Difficulty w/ Childcare or Family Care: No Gender identity (if verbalized by the patient): Male Spiritual care concerns: No Meds Home Medications and Allergies Home Medications Medication Instructions Recorded Confirmed Type lisinopri
[2023-09-10 15:50] LABS: INR 3.2; Prothrombin Time 32.7 Seconds (11.1-14.7)
[2023-09-10] MEDS: WARFARIN (*PBKC) 5 MG TABLET 10 MG PO (18:04)
--- NOTE | 2023-09-10 23:45 | PC.NURSE ---
Pt had 8.57 second pause. Asymptomatic. BP 192/65. Dr. Hernández notified. New orders received.
[2023-09-10] MEDS: hydrALAZINE 10 MG TABLET PO (23:58)
[2023-09-11] VITALS (19 sets, daily range): BP systolic 114–196; BP diastolic 56–80; PULSE 33–73; RESP 14–20; TEMP 36.4–37.2; O2SAT 95–100
[2023-09-11] MEDS: hydrALAZINE HCL 20 MG/ML VIAL 10 MG IV PUSH ×2 (05:45→12:11)
[2023-09-11 07:05] LABS: INR 3.1; Prothrombin Time 32.1 Seconds (11.1-14.7)
[2023-09-11 07:07] LABS: Anion Gap 10 mmol/L (4-12); Blood Urea Nitrogen 15 mg/dL (9-20); Calcium 8.6 mg/dL (8.4-10.2); Carbon Dioxide 24 mmol/L (22-30); Chloride 107 mmol/L (98-107); Estimated CRCL calculation 102 ml/min; Estimated Glomerular Filt Rate > 60; Glucose 97 mg/dL (65-110); Potassium 3.7 mmol/L (3.4-5.0); Sodium 141 mmol/L (137-145)
[2023-09-11 07:16] LABS: Basophils Percent Auto 0.5 % (0.2-1.2); Eosinophils Absolute Auto 0.2 K/mm3 (0-0.3); Eosinophils Percent Auto 3.5 % (0-4.4); Hematocrit 39.4 % (42.0-52.0); Hemoglobin 13.4 g/dL (14.0-18.0); Immature Granulocyte Absolute 0.02 K/mm3 (0.00-0.031); Immature Granulocyte Percent A 0.3 % (0-0.5); Lymphocytes Absolute Auto 1.56 K/mm3 (0.9-3.2); Lymphocytes Percent Auto 25.7 % (18.3-44.2); Mean Corpuscular Hemoglobin 30.9 pg (26-34); Mean Platelet Volume 10.8 fl (7.4-10.4); Monocytes Absolute Auto 0.6 K/mm3 (0.1-0.6); Monocytes Percent Auto 10.4 % (2.6-8.5); Neutrophils Absolute Auto 3.6 K/mm3 (1.3-6.7); Neutrophils Percent Auto 59.6 % (45.5-73.1); Platelet Count Result 214 k/mm3 (150-375); Red Blood Count 4.33 M/mm3 (4.6-6.20); Red Cell Distribution Width 12.8 % (11.5-14.5); White Blood Count 6.1 K/mm3 (4.5-10.0)
[2023-09-11] MEDS: hydrALAZINE 10 MG TABLET PO (08:27)
--- NOTE | 2023-09-11 10:05 | PC.NURSE ---
Addendum entered by Lisa Boyce RN 09/11/23 11:46: Dallas Estes NP notified also at this time. Original Note: Dr. Chavez notified of pt's BP of 196/80 1 hr after receiving 10mg PO Hydralazine. New order to notify hospitalist and to resume home medication of 10mg PO Lisinopril.
[2023-09-11] MEDS: lisinopriL 10 MG TABLET PO (10:15)
--- NOTE | 2023-09-11 11:27 | PM.PNCARD ---
Progress Note: A&P Assessment and Plan (1) Atrial flutter: Qualifiers: Atrial flutter type: unspecified Qualified Code(s): I48.92 - Unspecified atrial flutter Code(s): I48.92 - Unspecified atrial flutter Status: Inactive Assessment and Plan: This is a new diagnosis. Unsure how long he has been in flutter as he is asymptomatic. His ventricular rate is generally in the mid 30-s-40's and he does not take any AV sampson agents. He does have appropriate HR response to activity. Echo still pending. He is maintaining a good blood pressure (actually he is quite hypertensive) and is asymptomatic. He is already anticoagulated with warfarin because of his mechanical mitral valve. He does snore and has a pause last night. Will Order an [employer]neaLink. In my opinion he has a need for a pacemaker. He also has atrial flutter. Will not cardiovert him while in atrial flutter with slow ventricular response without pacemaker backup for fear of bradycardic or asystolic complications. Given his significant pause last night and his presenting symptoms of shortness of breath and heart failure, he likely needs a pacemaker and then will cardiovert him after implantation. (2) Shortness of breath: Code(s): R06.02 - Shortness of breath Status: Acute Assessment and Plan: Furosemide 40 mg IV x1 today Echo is pending. Further recommendations to follow. (3) Symptomatic bradycardia: Code(s): R00.1 - Bradycardia, unspecified Status: Acute Assessment and Plan: Significantly bradycardic despite being in atrial flutter (4) Atrial flutter: Qualifiers: Atrial flutter type: unspecified Qualified Code(s): I48.92 - Unspecified atrial flutter Code(s): I48.92 - Unspecified atrial flutter Status: Acute Assessment and Plan: On anticoagulation (5) Essential hypertension: Code(s): I10 - Essential (primary) hypertension Status: Acute Assessment and Plan: Resume lisinopril (6) Chronic anticoagulation: Code(s): Z79.01 - half-way (current) use of anticoagulants Status: Acute Assessment and Plan: Continue warfarin (7) H/O mitral valve replacement with mechanical valve: Code(s): Z95.2 - Presence of prosthetic heart valve Status: Acute Assessment and Plan: Continue warfarin. Echo pending. Plan Likely needs transfer to a tertiary facility for electrophysiology evaluation and treatment but will discuss with Dr. Winters regarding possible pacemaker implantation here while he is on warfarin Subjective Date/time seen: 09/11/23 11:27 Interval history: 58-year-old admitted for shortness of breath found to be in atrial flutter with slow ventricular response. Date of service 09/11/2023: Had an 8.5 sec pause last night. Presumably while sleeping. He denies any chest pain, syncope or dizziness. Still has some swelling and shortness of breath Review of Systems Review of Systems: All systems reviewed & are unremarkable except as noted in HPI and below Constitutional: Constitutional: Denies body ache(s) ENT: Reports Normal hearing present Cardiovascular: Cardiovascular: Denies chest pain and Reports leg edema Respiratory: Respiratory: Reports dyspnea Integumentary/Breasts: Skin/Breast: Denies dry skin Endocrine: Endocrine: Denies excessive sweating Hematologic/Lymphatic: Hematologic/Lymphatic: Denies easy bleeding Exam Narrative: Appears stated age Const: General: comfortable, no acute distress, alert and awake Orientation/consciousness: patient oriented x3 HENMT: Head: normal to inspection Eyes: General: appearance normal, both eyes and all related structures Sclera: sclerae normal Neck: Neck: normal visual inspection, supple and no JVD Carotids: normal carotid upstroke Resp: Effort & Inspection: normal respiratory effort Auscultation: clear to auscultation bilaterally Cardio:
--- NOTE | 2023-09-11 11:31 | PC.NURSE ---
Dallas Estes NP notified of pt's BP of 175/56. [employer] TEACHER responded with I will place some orders.
[2023-09-11] MEDS: FUROSEMIDE INJ 40 MG/4 ML VIAL 20 MG IV PUSH (12:11)
--- NOTE | 2023-09-11 15:10 | PM.IMPN ---
Progress Note: A&P Assessment and Plan (1) Atrial flutter: Qualifiers: Atrial flutter type: unspecified Qualified Code(s): I48.92 - Unspecified atrial flutter Code(s): I48.92 - Unspecified atrial flutter Status: Acute Assessment and Plan: -no history of atrial fibrillation. -A flutter noted on the satellite project site monitor -heart rate dropping to 30s, patient being monitored on telemetry -EKG consistent with atrial flutter with SVR -consult cardiology: Echocardiogram Ef of 60-65% with grade 2 diastolic dysfunction, TSH 1.470 -Noted bradycardia on monitor, reported 8 second pause -will continue warfarin for anticoagulation -p.r.n. atropine for heart rate less than 30 -no chest pain, negative troponin, ACS ruled out -UDS negative, UA negative, CMP within normal limits, WBC at 4 K, hemoglobin at 12 (2) Acute heart failure with preserved ejection fraction (HFpEF, >= 50%): Code(s): I50.31 - Acute diastolic (congestive) heart failure Status: Acute Assessment and Plan: -Echo Shows EF of 60-65% with a grade 2 diastolic dysfunction -Chest xray shows pulmonary vascular congestion -BNP elevated 1100 -patient only on lisinopril at home for HTN -patient given a dose of IV Lasix in the ED -One dose of IV lasix 20 mg given -Daily weights -Strict I and Os (3) Symptomatic bradycardia: Code(s): R00.1 - Bradycardia, unspecified Status: Acute Assessment and Plan: -Noted pause -HR consistently in the 30-60s -Most likely will need pacemaker -Cardiology following (4) Essential hypertension: Code(s): I10 - Essential (primary) hypertension Status: Acute Assessment and Plan: BP noted to be elevated 190s systolic Continue home lisnopril Lasix PRN Trend BP Added hydralazine PRN Plan # chronic conditions -essential hypertension: On lisinopril, held for diuresis and possibly changing if patient does have heart -mitral valve replacement: Patient had valve replacement [address] Dillon, he gets yearly checks. Patient on Coumadin for anticoagulation Diet: Heart healthy DVT prophylaxis: On warfarin Code status: Full code Disposition: Observation likely home in 1-3 days. 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 Dillon, essential hypertension who presents to ED with complaints of dyspnea on exertion and orthopnea for last 10 days. Feels his symptoms have slowly gotten worse over last 10 days. He would wake up feeling very short of breath. When he gets up to urinate in the middle night he feels short of breath. He feels his exercise tolerance has gone down as well. Overlies they are to he noticed lower extremity edema. Patient had a mitral valve replaced after infected valve [address] Dillon. He gets yearly cardiology evaluations and echocardiograms, most recent being January 2023. He thinks he is due for another echocardiogram soon. He has had no recent med changes. He recently camped in [place] however did not have any tick bites bug bites. He has no sick contacts. In the ED: Patient was symptoms of dyspnea on exertion, BNP 1100, chest x-ray with pulmonary edema, he was given 40 mg IV Lasix for pulmonary edema and fluid overload. Patient's heart rate dropped to 30s and he was given a dose of atropine. 09/11/2023 0845 Patient was lying in bed. Patient states that he was feeling okay. He denies any current chest pain, shortness a breath, nausea, vomiting, diarrhea constipation. Awaiting further recommendations from Cardiology. Review of Systems Review of Systems: All systems reviewed & are unremarkable except as noted in HPI and below Exam Narrative: General: well-nourished, well-appearing
[2023-09-11] MEDS: FUROSEMIDE INJ 40 MG/4 ML VIAL IV PUSH (18:04)
[2023-09-12] VITALS: BP 167/56; PULSE 46; PULSE 49; RESP 20; TEMP 36.9; O2SAT 99
[2023-09-12] MEDS: hydrALAZINE HCL 20 MG/ML VIAL 10 MG IV PUSH (00:05)
[2023-09-12] MEDS: ACETAMINOPHEN 325 MG TABLET 650 MG PO (00:05)
[2023-09-12 02:00] VITALS: PULSE 45
[2023-09-12 03:58] VITALS: BP 155/43; PULSE 44; RESP 16; TEMP 37.5; O2SAT 98
[2023-09-12 04:00] VITALS: PULSE 43; RESP 16; O2SAT 98
[2023-09-12 05:01] LABS: Basophils Percent Auto 0.4 % (0.2-1.2); Eosinophils Absolute Auto 0.2 K/mm3 (0-0.3); Eosinophils Percent Auto 2.2 % (0-4.4); Hemoglobin 13.8 g/dL (14.0-18.0); Immature Granulocyte Absolute 0.02 K/mm3 (0.00-0.031); Immature Granulocyte Percent A 0.3 % (0-0.5); Lymphocytes Percent Auto 30.7 % (18.3-44.2); Mean Corpuscular HGB Conc 32.9 g/dl (32-36); Mean Corpuscular Hemoglobin 30.9 pg (26-34); Mean Platelet Volume 10.7 fl (7.4-10.4); Monocytes Absolute Auto 0.7 K/mm3 (0.1-0.6); Monocytes Percent Auto 10.2 % (2.6-8.5); Neutrophils Absolute Auto 3.8 K/mm3 (1.3-6.7); Neutrophils Percent Auto 56.2 % (45.5-73.1); Platelet Count Result 222 k/mm3 (150-375); Red Blood Count 4.47 M/mm3 (4.6-6.20); Red Cell Distribution Width 13.2 % (11.5-14.5); White Blood Count 6.8 K/mm3 (4.5-10.0)
[2023-09-12 05:10] LABS: INR 2.7; Prothrombin Time 28.5 Seconds (11.1-14.7)
[2023-09-12 05:14] LABS: Alanine Aminotransferase 30 U/L (6-50); Albumin Level 4.4 g/dL (3.5-5.1); Alkaline Phosphatase 52 U/L (38-126); Anion Gap 11 mmol/L (4-12); Aspartate Amino Transferase 23 U/L (17-59); Blood Urea Nitrogen 20 mg/dL (9-20); Calcium 8.8 mg/dL (8.4-10.2); Carbon Dioxide 25 mmol/L (22-30); Chloride 105 mmol/L (98-107); Estimated CRCL calculation 93 ml/min; Estimated Glomerular Filt Rate > 60; Glucose 104 mg/dL (65-110); Magnesium 2.3 mg/dL (1.6-2.3); Potassium 3.3 mmol/L (3.4-5.0); Sodium 141 mmol/L (137-145)
[2023-09-12 06:00] VITALS: PULSE 47
[2023-09-12] MEDS: lisinopriL 10 MG TABLET PO (07:28)
--- NOTE | 2023-09-12 07:46 | PM.DS ---
DS: Admitting Diagnosis Discharge Date 09/12/2023 0730 Admitting Diagnosis Symptomatic Bradycardia DS: Discharge Diagnosis Discharge Diagnosis (1) Atrial flutter: Qualifiers: Atrial flutter type: unspecified Qualified Code(s): I48.92 - Unspecified atrial flutter Code(s): I48.92 - Unspecified atrial flutter Status: Acute Assessment and Plan: -no history of atrial fibrillation. -A flutter noted on the quality assurance monitor chassis -heart rate dropping to 30s, patient being monitored on telemetry -EKG consistent with atrial flutter with SVR -consult cardiology: Echocardiogram Ef of 60-65% with grade 2 diastolic dysfunction, TSH 1.470 -Noted bradycardia on monitor, reported 8 second pause -will continue warfarin for anticoagulation -p.r.n. atropine for heart rate less than 30 -no chest pain, negative troponin, ACS ruled out -UDS negative, UA negative, CMP within normal limits, WBC at 4 K, hemoglobin at 12 (2) Acute heart failure with preserved ejection fraction (HFpEF, >= 50%): Code(s): I50.31 - Acute diastolic (congestive) heart failure Status: Acute Assessment and Plan: -Echo Shows EF of 60-65% with a grade 2 diastolic dysfunction -Chest xray shows pulmonary vascular congestion -BNP elevated 1100 -patient only on lisinopril at home for HTN -patient given a dose of IV Lasix in the ED -One dose of IV lasix 20 mg given -Daily weights -Strict I and Os (3) Symptomatic bradycardia: Code(s): R00.1 - Bradycardia, unspecified Status: Acute Assessment and Plan: -Noted pause -HR consistently in the 30-60s -Most likely will need pacemaker -Cardiology following (4) Essential hypertension: Code(s): I10 - Essential (primary) hypertension Status: Acute Assessment and Plan: BP noted to be elevated 190s systolic Continue home lisnopril Lasix PRN Trend BP Added hydralazine PRN Plan # chronic conditions -essential hypertension: On lisinopril, held for diuresis and possibly changing if patient does have heart -mitral valve replacement: Patient had valve replacement [address] Dillon, he gets yearly checks. Patient on Coumadin for anticoagulation Diet: Heart healthy DVT prophylaxis: On warfarin Code status: Full code Disposition: Observation likely home in 1-3 days. Patient going to IMU for possible atrophy need DS: Summary Hospital Course Hospital Course: Patient 58-year-old male with a past medical history of mitral valve replacement hypertension who presented the ED with complaints of dyspnea on exertion orthopnea for the last 10 days. Patient was noted to have an 8 second pause While in the hospital. Cardiology was consulted as the patient's heart rate was between 30s and 60s. Blood pressure was also uncontrolled in the 190 systolic. BNP was 1100, chest x-ray with pulmonary edema patient was given IV Lasix intermittently. Due to the patient's uncontrolled heart rate patient will need pacemaker placement and is being transferred to [facility] for further evaluation and treatment. Currently patient is doing okay he denies any can chest pain, shortness a breath, nausea, vomiting, diarrhea constipation. Patient has been informed and updated about plan of care and agrees with plan care at this time. Time spent discussing smoking cessation with patient: more than 10 minutes Status at Discharge Functional status at discharge: independent ambulation Overall status at discharge: patient is progressing back to baseline Time Spent with Patient Time attestation: Total time spent providing and/or coordinating discharge services: 48 minutes Time spent: Greater than 30 minutes Specific discharge activities: Diagnostic testing, chart review, developing a treatment plan, education, care coordination documentation, physical exam, result review Exam Narrative: General: well-nourished, well-appearin
[2023-09-12 08:00] VITALS: BP 158/74; PULSE 34; PULSE 57; RESP 14; TEMP 37.2; O2SAT 97
--- NOTE | 2023-09-12 09:29 | PM.PNCARD ---
Progress Note: A&P Assessment and Plan (1) Atrial flutter: Qualifiers: Atrial flutter type: unspecified Qualified Code(s): I48.92 - Unspecified atrial flutter Code(s): I48.92 - Unspecified atrial flutter Status: Inactive Assessment and Plan: This is a new diagnosis. Unsure how long he has been in flutter as he is asymptomatic. His ventricular rate is generally in the mid 30-s-40's and he does not take any AV sampson agents. He does have appropriate HR response to activity. He is maintaining a good blood pressure (actually he is quite hypertensive) He is already anticoagulated with warfarin because of his mechanical mitral valve. He does snore and has a pause last night. In my opinion he has a need for a pacemaker. He also has atrial flutter. Will not cardiovert him while in atrial flutter with slow ventricular response without pacemaker backup for fear of bradycardic or asystolic complications. Given his significant pause last night and his presenting symptoms of shortness of breath and heart failure, he likely needs a pacemaker and then will cardiovert him after implantation. (2) Shortness of breath: Code(s): R06.02 - Shortness of breath Status: Acute Assessment and Plan: Shortness of breath is better. Further recommendations to follow. (3) Symptomatic bradycardia: Code(s): R00.1 - Bradycardia, unspecified Status: Acute Assessment and Plan: Significantly bradycardic despite being in atrial flutter (4) Essential hypertension: Code(s): I10 - Essential (primary) hypertension Status: Acute Assessment and Plan: Resume lisinopril (5) Chronic anticoagulation: Code(s): Z79.01 - salvage determiner (current) use of anticoagulants Status: Acute Assessment and Plan: Continue warfarin. INR 2.7. (6) H/O mitral valve replacement with mechanical valve: Code(s): Z95.2 - Presence of prosthetic heart valve Status: Acute Assessment and Plan: Continue warfarin. Preserved ejection fraction (7) Hypokalemia: Code(s): E87.6 - Hypokalemia Status: Acute Assessment and Plan: KCL 40 mEq p.o. x1 now Plan Transferring to [facility] for pacemaker implantation tomorrow. INR today 2.7. Significantly abnormal ApneaLink. Will need outpatient formal sleep study and referral to Sleep Medicine Subjective Date/time seen: 09/12/23 09:29 Interval history: 58-year-old admitted for shortness of breath found to be in atrial flutter with slow ventricular response. Date of service 09/11/2023: Had an 8.5 sec pause last night. Presumably while sleeping. He denies any chest pain, syncope or dizziness. Still has some swelling and shortness of breath Date of service 09/12/2023: Has a better [facility]. Awaiting transfer. No chest pain or shortness breath. No significant pauses but heart rate still in a 30s and 40s Review of Systems Review of Systems: All systems reviewed & are unremarkable except as noted in HPI and below Constitutional: Constitutional: Denies body ache(s) and Denies excessive sweating ENT: Reports Normal hearing present Cardiovascular: Cardiovascular: Denies chest pain, Reports leg edema and Reports dyspnea Respiratory: Respiratory: Reports dyspnea Integumentary/Breasts: Skin/Breast: Denies dry skin Neurologic: Reports Normal hearing present Endocrine: Endocrine: Denies excessive sweating Hematologic/Lymphatic: Hematologic/Lymphatic: Denies easy bleeding Exam Narrative: Appears stated age Const: General: comfortable, no acute distress, alert and awake Orientation/consciousness: patient oriented x3 HENMT: Head: normal to inspection Eyes: General: appearance normal, both eyes and all related structures Sclera: sclerae normal Neck: Neck: normal visual inspection, supple and no JVD Carotids: normal carotid upstroke Resp: Effort & Inspection: normal respiratory e
--- NOTE | 2023-09-12 09:33 | PC.NURSE ---
Pt transferred [facility] Room 928. Report called at 0730 to JAIME Basurto. Family at bedside and aware of transfer. Personal belongings sent with family.
--- NOTE | 2023-09-13 07:23 | PM.TDS ---
Transfer Discharge Sum: Prov Provider Date of admission: 09/11/23 10:15 Primary care physician: Ben Ferrari, PA-C Admitting clinician: Jani Horowitz DO Consults: 09/10/23 11:45 Consult to Physician Routine Comment: Consulting Provider: Lionel Lamas Reason for consultation: Symptomatic bradycardia Has provider been notified: Yes DS: Admitting Diagnosis Discharge Date 09/12/23 Admitting Diagnosis Symptomatic bradycardia DS: Discharge Diagnosis Discharge Diagnosis (1) Atrial flutter: Qualifiers: Atrial flutter type: unspecified Qualified Code(s): I48.92 - Unspecified atrial flutter Code(s): I48.92 - Unspecified atrial flutter Status: Acute Assessment and Plan: -no history of atrial fibrillation. 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 atropine for heart rate less than 30 -no chest pain, negative troponin, ACS ruled out -UDS negative, UA negative, CMP within normal limits, WBC at 4 K, hemoglobin at 12 (2) Acute heart failure with preserved ejection fraction (HFpEF, >= 50%): Code(s): I50.31 - Acute diastolic (congestive) heart failure Status: Acute Assessment and Plan: -Echo Shows EF of 60-65% with a grade 2 diastolic dysfunction -Chest xray shows pulmonary vascular congestion -BNP elevated 1100 -patient only on lisinopril at home for HTN -patient given a dose of IV Lasix in the ED -One dose of IV lasix 20 mg given -Daily weights -Strict I and Os (3) Symptomatic bradycardia: Code(s): R00.1 - Bradycardia, unspecified Status: Acute Assessment and Plan: -Noted pause -HR consistently in the 30-60s -Most likely will need pacemaker -Cardiology following (4) Essential hypertension: Code(s): I10 - Essential (primary) hypertension Status: Acute Assessment and Plan: BP noted to be elevated 190s systolic Continue home lisnopril Lasix PRN Trend BP Added hydralazine PRN Plan # chronic conditions -essential hypertension: On lisinopril, held for diuresis and possibly changing if patient does have heart -mitral valve replacement: Patient had valve replacement [address] Dillon, he gets yearly checks. Patient on Coumadin for anticoagulation Diet: Heart healthy DVT prophylaxis: On warfarin Code status: Full code Disposition: Observation likely home in 1-3 days. Patient going to IMU for possible atrophy need Transfer Discharge Sum: Med Medications Active and Home Medications: Home Medications lisinopril 10 mg tablet 10 mg PO DAILY 04/01/19 [History Confirmed 09/10/23] warfarin 5 mg tablet 10 mg PO DAILY 04/01/19 [History Confirmed 09/10/23] Transfer Discharge Sum: Hosp Hospital Course Hospital course: Orlando Navarro is a 58 year old male with a past medical history of mitral valve replacement hypertension who presented the ED with complaints of dyspnea on exertion orthopnea for the last 10 days. Patient was noted to have an 8 second pause While in the hospital. Cardiology was consulted as the patient's heart rate was between 30s and 60s. Blood pressure was also uncontrolled in the 190 systolic. BNP was 1100, chest x-ray with pulmonary edema patient was given IV Lasix intermittently. Due to the patient's uncontrolled heart rate patient will need pacemaker placement and is being transferred to [facility] for further evaluation and treatment. Currently patient is doing okay he denies any can chest pain, shortness a breath, nausea, vomiting, diarrhea constipation. Patient has been informed and updated about
== END 2023-09-12 09:32 | disposition short-term general hospital (02) | DRG 308 ==
LOC: ANHED 11:50 → ANHIMU 12:06
PROVIDERS: Nurse Practitioner; Admitting Provider Student in an Organized Health Care Education/Training Program; Emergency Provider Preventive Medicine Aerospace Medicine; PCP Physician Assistant; Visit Provider Nurse Practitioner
DX: I49.5 Sick sinus syndrome (principal); I50.31 Acute diastolic (congestive) heart failure; I48.92 Unspecified atrial flutter; R00.1 Bradycardia, unspecified; I11.0 Hypertensive heart disease with heart failure; E87.6 Hypokalemia; Z79.01 Long term (current) use of anticoagulants; Z95.4 Presence of other heart-valve replacement; Z87.442 Personal history of urinary calculi
CPT/HCPCS: 36415; 71045; 80048; 80053; 80307; 81003; 83735; 83880; 84443; 84484; 85025; 85610; 93005; 93306; 94762; 96374; 99215; 99285; A9270; G0378; G0463; J0360; J1940

== ENCOUNTER 2023-10-29 02:16 | Day surgery (SDC) | payer OTHER, SELFPAY ==
[2023-10-28 15:50] VITALS: BMI 38.8
[2023-10-29] VITALS (11 sets, daily range): BP systolic 126–151; BP diastolic 76–96; PULSE 60–70; RESP 11–17; TEMP 36.2; O2SAT 97–100; BMI 38.8
--- NOTE | 2023-10-29 07:00 | ECG_ITS ---
Test Date: 2023-10-29 09:39:55 Measurements Intervals [place] Rate: 60 P: 153 [place]: 208 QRS: 22 QRSD: 173 T: 54 QT: 493 QTc: 493 Interpretive Statements ELECTRONIC ATRIAL PACEMAKER ELECTRONIC VENTRICULAR PACEMAKER ABNORMAL RHYTHM ECG Compared to ECG 10/29/2023 07:23:36 Atrial flutter no longer present Electronically Signed On 10-29-2023 16:12:55 CDT by Lionel Lamas M.D.
[2023-10-29 08:00] LABS: Anion Gap 10 mmol/L (4-12); Blood Urea Nitrogen 14 mg/dL (9-20); Calcium 8.7 mg/dL (8.4-10.2); Carbon Dioxide 25 mmol/L (22-30); Chloride 103 mmol/L (98-107); Estimated CRCL calculation 108 ml/min; Estimated Glomerular Filt Rate > 60; Glucose 102 mg/dL (65-110); Magnesium 2.1 mg/dL (1.6-2.3); Potassium 4.1 mmol/L (3.4-5.0); Sodium 138 mmol/L (137-145)
--- NOTE | 2023-10-29 08:00 | ECG_ITS ---
Test Date: 2023-10-29 07:23:36 Measurements Intervals [place] Rate: 70 P: 0 RI: 0 QRS: -17 QRSD: 159 T: 53 QT: 441 QTc: 476 Interpretive Statements ELECTRONIC VENTRICULAR PACEMAKER ATRIAL FLUTTER ABNORMAL RHYTHM ECG Compared to ECG 09/10/2023 10:03:28 VENTRICULAR PACING NOW PRESENT Electronically Signed On 10-29-2023 15:44:05 CDT by Lionel Lamas M.D.
--- NOTE | 2023-10-29 08:43 | WPDHPUPDATE1 ---
History and Physical Update Update Date/Time: 10/29/23 08:43 History and Physical has been reviewed, including an updated exam of the patient. There are NO changes in the patient's condition. Risks, benefits, and alternatives have been discussed and questions answered. Patient agrees to proceed with procedure.
--- NOTE | 2023-10-29 08:43 | WPDMODSED ---
Moderate Sedation Note-Pt Data Patient Data Diagnosis: Atrial flutter Present Complaint: Atrial flutter Procedure to be performed/Plan: Synchronized electrical cardioversion Allergies Allergy/AdvReac Type Severity Reaction Status Date / Time No Known Allergies Allergy Unknown Verified 10/29/23 07:22 Home Medications Medication Instructions Recorded Confirmed Type lisinopril 10 mg tablet 10 mg PO DAILY 04/01/19 10/28/23 History warfarin 5 mg tablet 10 mg PO DAILY 04/01/19 10/28/23 History Current Medications: Active Medications Sodium Chloride (Normal Saline Iv) 1,000 mls @ 30 mls/hr IV CONT .Q24H CHITRA Sedation/Anesthesia: No previous sedation/anesthesia problems (including family history). [facility] Past Medical History Medical History Afib Hypertension Kidney stones On warfarin therapy Surgical History Surgical History H/O inguinal hernia repair H/O mitral valve replacement with mechanical valve Hx of tonsillectomy Family History Family History Father Diabetes mellitus, Onset Age: 65 Family history of alcoholism, Onset Age: 65 Sibling Diabetes mellitus Hypertension Mother Family history of malignant neoplasm of breast in first degree relative, Onset Age: 70 Social History Social History Smoking status: Never smoker Alcohol intake: never Substance use: never Substance use type: does not use Do You Feel Safe in your Home?: Yes Lack of Transportation: No Lack of Food: Never True Current Housing: I Have Housing Concerned About Future Housing: No Difficulty Paying Gas/Electric Bills: No Difficulty Paying for Meds: No Currently Unemployed: No Education: High School Diploma/GED Difficulty w/ Childcare or Family Care: No Living arrangements: with family Gender identity (if verbalized by the patient): Male Spiritual care concerns: No Mod Sed Physical Exam Physical Exam Pre Procedural Exam: Normal: Appearance, Heart Rate, Neuro Exam, Extremities and Skin and Variation: Heart Rhythm (Atrial flutter) Hours since solid foods: 12 Hours since liquid intake: 8 Mallampati Classification: class III Internal Medicine - PN: Obj Da Vital Signs Vital Signs: Vital Signs - 24 hr 10/29/23 07:28 10/29/23 08:40 Temperature 36.2 C L Pulse Rate 70 70 Respiratory Rate 16 15 Blood Pressure 131/86 139/91 H Pulse Oximetry 98 100 Oxygen Delivery Room Air Nasal Cannula Oxygen Flow Rate 2 Meds/Results Medications: Active Medications Generic Name Dose Route Start Last Admin Trade Name Freq PRN Reason Stop Dose Admin Sodium Chloride 1,000 mls @ 30 mls/hr 10/29/23 07:00 Normal Saline Iv IV CONT .Q24H CHITRA Labs 10/29/23 07:27 Labs: Laboratory Results - last 24 hr 10/29/23 07:27 Sodium 138 Potassium 4.1 Chloride 103 Carbon Dioxide 25 Anion Gap 10 BUN 14 D Creatinine 1.00 Estim Creat Clear Calc 108 Estimated GFR > 60 Glucose 102 Calcium 8.7 Magnesium 2.1 ASA Classification/Sedation ASA Classification/Sedation ASA Class: II Emergent: No Risks: Risks, benefits and alternatives explained and patient/family accepted plan for sedation. Patient re-evaluated immediately prior to sedation.
[2023-10-29 09:13] LABS: Prothrombin Time 32.2 Seconds (11.1-14.7)
--- NOTE | 2023-10-29 09:38 | P.PCNCVR_ITS ---
Cardioversion Cardioversion Date of procedure: 10/29/23 Procedure: Synchronized electrical cardioversion Pre-op diagnosis: Atrial flutter Post-op diagnosis: Other (Successful cardioversion.) Indications: Atrial flutter Description of procedure: Written informed consent obtained. Defibrillator pads placed in an anterior- posterior position. Time out performed by JAIME Radford. Total of Propofol 100mg IV was administered by me. Once patient was adequately sedated, synchronized electrical cardioversion was performed with 1 shock at 250 joules, which successfully converted patient to atrial-paced ventricular-paced rhythm. Patient's hemodynamics and respiratory status was monitored throughout the procedure. No periprocedural complications. Procedure start time: 09:25 AM Procedure end time: 09:36 PM Total procedure time: 11 minutes Sedation: Total of Propofol 100mg IV was administered by me. Findings: Successful synchronized electrical cardioversion to atrial-paced ventricular- paced rhythm with 1 shock at 250 joules. Conclusion: Successful synchronized electrical cardioversion to atrial-paced ventricular- paced rhythm with 1 shock at 250 joules.
== END 2023-10-29 10:45 | disposition home or self-care (01) ==
PROVIDERS: PCP Physician Assistant; Visit Provider Internal Medicine
PROC: 5A2204Z Restoration of Cardiac Rhythm, Single (ICD-10-PCS; principal; 2023-10-29 08:30)
DX: I48.92 Unspecified atrial flutter (principal)
CPT/HCPCS: 36415; 80048; 83735; 85610; 92960; J2704; J7030

== ENCOUNTER 2024-06-25 10:20 | Outpatient (CLI) | payer OTHER, SELFPAY ==
--- NOTE | ~2024-06-25 | XR_ITS ---
AP view of the pelvis and AP and lateral views of the bilateral hips Clinical history: Arthritis Findings: No acute fracture or dislocation is seen. There is severe osteoarthritis of the right hip j oint with joint space narrowing and osteophyte formation and reactive sclerosis. There is moderate de generative change of the left hip joint.. Soft tissues are unremarkable. Impression: Severe right hip joint degenerative change. Moderate left hip joint degenerative change. Reviewed, dictated and finalized at location M. Impression: Severe right hip joint degenerative change. Moderate left hip joint degenerative change.
--- OUTSIDE RECORDS SUMMARY | 2024-06-25 11:37 | XMS_ITS | Encounter Summary ---
Author Organization [facility] Healthcare Address [address] [place] [address] Care Team Providers Care Cage Supervisor Name Role Phone Neida Cm MD Primary Care Provider + Encounter Details Date Type Department Care Team (Late st Contact Info) Description 06/25/2024 Telephone [facility] Cardiology [address] [place] [address] Edvin Chavez MD [facility] [address] Social History Tobacco Use Types Packs/Day Years Used Date Smoking Tobacco: Never Smokeless Tobacco: Never Alcohol Use Standard Drinks/Week Comments Yes 0 (1 standard drink = 0.6 oz pur e alcohol) Personal Safety Answer Date Recorded Have you ever been in or are you currently in a harmful physical or emotional relationship or is someone making you feel afraid or unsafe? 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 Pt aware. 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
--- OUTSIDE RECORDS SUMMARY | 2024-06-25 11:37 | XMS_ITS | Clinical Summary ---
Author Organization [facility] [address] Address [address] [place] [address] Care Team Providers Care [employer] Tester Name Role Phone Neida Cm MD Primary Care Provider + Allergies No known active allergies Medications prothrombin time test strips (COAGUCHEK XS) strip use one strip every two weeks to check INR. 12 strip 6 5 Active warfarin (COUMADIN) 1 mg tablet TAKE 2 TABLETS BY MOUTH EVERY DAY OR DIRECTED 60 tablet 8 Active furosemide (LASIX) 20 mg tabletIndicatio ns:HTN (hypertension), benign TAKE 1 TABLET BY MOUTH EVERY DAY NEEDED FOR SWELLING 30 tablet 5 1 Active Additional Information Patient not taking.Reported on 06/25/2024 lisinopriL (PRINIVIL,ZESTR IL) 10 mg tabletIndicatio ns:HTN (hypertension), benign TAKE 1 TABLET BY MOUTH EVERY DAY 90 tablet 1 4 Active warfarin (COUMADIN) 5 mg tablet Take 2 tablets (10 mg total) by mouth daily 180 tablet 5 Active Active Problems Problem Noted Date Diagnosed Date Hyperlipidemia LDL goal <100 06/25/2024 Cardiac pacemaker in situ 09/24/2023 Overview (09/24/2023): Biotronik Amvia Edge Dual Pacemaker. Dx; SSS, Talat, Pauses, Aflutter. DOI 09/13/2023-Anthony. Biotronik remote monitoring. Visit for wound check 09/20/2023 Bradycardia 09/11/2023 Sinus pause 09/11/2023 Atrial flutter 09/11/2023 History of COVID-19 12/01/2020 Morbid obesity with BMI of 40.0-44.9, adult 05/02 HTN (hypertension), benign 02/19/2019 Presence of prosthetic heart valve 08/07/2016 Obesity with body mass index 30 or greater 08/23 Overview (06/07/2016): Obesity (BMI 35.0-39.9 without comorbidity) History of mitral valve replacement with mechani hanna valve 08/24/2015 Overview (06/07/2016): History of mitral valve replacement with mechanical valve Endocarditis 08/24/2015 Overview (06/07/2016): Endocarditis of mitral valve Non-rheumatic mitral regurgitation 08/24/2015 Overview (06/07/2016): Non-rheumatic mitral regurgitation Dyspnea on exertion 08/24/2015 Overview (06/07/2016): OLSEN (dyspnea on exertion) Dyslipidemia 08/24/2015 Overview (06/07/2016): Dyslipidemia Atrial fibrillation 08/24/2015 Overview (06/07/2016): Postoperative atrial fibrillation First degree AV block 08/24/2015 Overview (06/08/2016): First degree AV block Shortness of breath 07/30/2012 Resolved Problems Problem Noted Date Diagnosed Date Resolved Date Class 2 severe obesity due t o excess calories with serious comorbidity and body mass index (BMI) of 39.0 to 39.9 in adult 07/18/2017 3 longterm current use of ant icoagulant therapy 08/24/2015 06/25/2024 Overview (06/07/2016): Chronic anticoagulation Encounters Date Type Department Care Team Description 06/25/2024 9:30 AM CDT Office Visit [facility] [address] [place] [phone] Edvin Chavez MD Typical atrial flutter (HCC) (Primary Dx); Cardiac pacemaker in situ; History of mitral valve replacement with mechanical valve; Morbid obesity with BMI of 40.0-44.9, adult (HCC); HTN (hypertension), benign; Hyperlipidemia LDL goal <100 06/25/2024 Telephone [facility] [address] [place] [address] [place] [phone] Edvin Chavez MD 06/19/2024 Telephone [facility] [address] [place] [address] [place] [phone] Edvin Chavez MD 05/05/2024 7:45 AM FORESTRY SUPPORT SPECIALIST Ancillary Procedure [facility] [address] [facility] [address] [place] [phone] Cardiac pacemaker in situ [Z95.0] (Primary Dx); Atrial flutter, unspecified type (HCC); SSS (sick sinus syndrome) (HCC); Bradycardia 05/01/2024 Telephone [facility] [address] [place] [address] [place] [phone] Edvin Chavez MD Med Refill 2024 10:50 AM FORESTRY SUPPORT SPECIALIST - 2024 11:59 PM FORESTRY SUPPORT SPECIALIST Hospital Encounter [address] [address] Discharge Disposition: Discharge to home or self care 2024 10:30 AM FORESTRY SUPPORT SPECIALIST Lab [facility] at [address] [phone] Dyslipidemia (Primary Dx) 2024 Anticoagulation Visit [facility] [address] [place] [address] [place] [phone] Edvin Napolse RN Presence of prosthetic heart valve (Primary Dx) 04/03/2024 Telephone [facility] [address] [place] [address] [place] [phone] Edvin Chavez MD INR test strips from Last 3 Months Surgical History Surgery Date Site/Laterality Comments OTHER SURGICAL HISTORY mechanical mitral valve replacement TONSILLECTOMY tonsillectomy Medical History Medical History Date Comments Hx Other Medical 2013 subacute bacter ial endocarditis Hx Other Medical DVT of right LE Calculus of kidney nephrolithias is Family History Medical History Relation Name Comments Diabetes Father Cancer Mother breast Relation Name Status Comments Father (Age 70) Mother (Age 70) Social History Tobacco Use Types Packs/Day Years Used Date Smoking Tobacco: Never Smokeless Tobacco: Never Tobacco Cessation:Counseling Given: Not Answered Alcohol Use Standard Drinks/Week Comments Yes 0 [...] on file Legal Sex Male 10:50 AM FORESTRY SUPPORT SPECIALIST Gender Identity Not on file Sexual Orientation Not on file Obstetrics History Last Filed Vital Signs Vital Sign Reading Time Taken Comments Blood Pressure 125/75 06/25/2024 9:52 AM CDT Pulse 65 06/25/2024 9:32 AM CDT Temperature 36.6 C (97.9 F) 09/14/2023 8:21 AM CDT Respiratory Rate 18 09/14/2023 8:21 AM CDT Oxygen Saturation 96% 06/25/2024 9:32 AM CDT Inhaled Oxygen Concentration - - Weight 146.1 kg (322 lb) 06/25/2024 9:32 AM CDT Height 190.5 cm (6' 3 ) 06/25/2024 9:32 AM CDT Body Mass Index 40.25 06/25/2024 9:32 AM CDT Plan of Treatment Health Maintenance Due Date Last Done Comments Colon Cancer Screening-Colonoscopy 1965 Depression Screening 1965 Hepatitis C Screening 1965 Prostate Cancer Screening-PSA 1965 DTaP/Tdap/Td Vaccine (1 - Tdap) 1976 Hepatitis B Screening 1983 Regular Well Visit/Exam 18-64 1983 Zoster Vaccine (1 of 2) 2015 Influenza Vaccine (Season Ended) 2024 Pneumococcal vaccine <65 Aged Out No longer eligible based on patient's age to complete this topic Medical Devices Implanted Type Area Foot Worker Device Identifier Shelf Expiration Date Model / Serial / Lot [employer]ik Inc Solia S 53cm Steroid Elute Bipolar Active Fixation Endocardial [id number] - [id number] - [id number] Implanted:Qty: 1 on 09/13/2023 by Ramonita Cruz MD at [facility] Left: Chest [employer] Inc [id number] 07/01/2025 [id number] / [id number] / Description:RA Lead [employer] Promri Solia S 60cm Lead Pacing Steroid Eluting [id number] - [id number] - [id number] Implanted:Qty: 1 on 09/13/2023 by Ramonita Cruz MD at [facility] Left: Chest [employer] Inc [id number] 07/01/2025 [id number] / [id number] / Description:RV Lead Medtronic Inc Tyrx Absorbable Antibacterial Envelope-Med 2.7x2.5in [id number] - [id number] Implanted:Qty: 1 on 09/13/2023 by Ramonita Cruz MD at [facility] Left: Chest Med[employer]onic Inc 06/14/2024 [id number] / / [id number] Biotronik Inc Pacemaker Implantable Amvia Edge Dual Chamb Rate-Responsive [id number] - [id number] - [id number] Implanted:Qty: 1 on 09/13/2023 by Ramonita Cruz MD at [facility] Left: Chest [employer] Inc [id number] 01/01/2025 [id number] / [id number] / Procedures Procedure Name Priority Date/Time Associated Diagnosis Comments POCT LIPID PANEL Routine 06/25/2024 9:34 AM CDT Hyperlipidemia LDL goal <100 DEVICE CHECK - REMOTE Routine 05/05/2024 7:47 AM FORESTRY SUPPORT SPECIALIST Atrial flutter, unspecified type (HCC) SSS (sick sinus syndrome) (HCC) Bradycardia PROTIME-INR Routine 2024 10:50 AM FORESTRY SUPPORT SPECIALIST from Last 3 Months Results * POCT lipid panel (06/25/2024 9:34 AM CDT) Cholesterol, POC 228 mg/dL HDL, POC 34 mg/dL Triglycerides, POC 209 mg/dL LDL Cholesterol POC 152 mg/dL Chol/HDL Ratio, POC 4.5 Non-HDL Cholesterol, POC 194 mg/dL Cholesterol Total, POC 228 mg/dL Capillary blood 06/25/2024 9 :34 AM CDT Edvin Chavez MD POINT OF CARE TEST ORDERA BLES Final Result * DEVICE CHECK - REMOTE (05/05/2024 7:47 AM FORESTRY SUPPORT SPECIALIST) Anatomical Region Laterality Modality Other Narrative 05/07/2024 2:38 PM FORESTRY SUPPORT SPECIALIST Bi[employer]ronik Amvia Edge Dual Pacemaker. Dx; SSS, Talat, Pauses, Aflutter. DOI 09/13/2023-Anthony. Biotronik remote. Routine DDD Pacemaker Remote. Transmission attached. Battery status: Ok, 90% remaining battery life to RAMSEY. Stable lead impedances, pacing and sensing thresholds. Presenting rhythm: AP-SIGHTER. AP-66%, SIGHTER-100%. 406 AT/AF episodes noted, longest episode was 4 minutes in duration, IEGM demonstrates Aflutter. AF [place] 0.3%. No Ventricular high rate episodes detected. Medications: Coumadin. See scanned report. Office pacemaker follow up: due in 9-12 months. Biotronik remote f/u 08/11/2024. Doris Spencer, RN Edvin Chavez MD CV [facility] Final Result * (ABNORMAL) Protime-INR (2024 10:50 AM FORESTRY SUPPORT SPECIALIST) PT 34.9(H) 9.7 - 13.0 sec INR 3.16(H) 0.90 - 1.20 REDD ESPNIAL Comment: Interpretive data Oral anticoagulant therapeutic ranges: Venous thromboembolism prophylaxis or treatment: 2.0-3.0 CARDIOLOGY Standard range: 2.0-3.0 High-intensity range: 2.5-3.5 Refer to indication-specific guidelines for appropriate target ranges for prosthetic heart valve replacement. Current interpretive data was last revised on 2019. Blood 2024 10:5 0 AM FORESTRY SUPPORT SPECIALIST 2024 3:39 PM FORESTRY SUPPORT SPECIALIST us Edvin Chavez MD LAB BLOOD ORDERABLES Erica jonny Result REDD [id number] [address] Department of Laboratories [place] [id number] from Last 3 Months [facility] [id number] [employer] [facility] [id number] [employer] [facility] [id number] Advance Directives For more information, please contact: [phone] * Full Code (Latest Code Status on File) Date Activated Date Inactivated Comments 09/12/2023 11:09 AM 09/14/2023 4:23 PM Care Teams [employer] Packages Tester Relationship Specialty Start Date End Date Neida Cm MD [address] [place] [address] [address] [facility] [address] PCP - General Family Medicine 06/25/24
--- OUTSIDE RECORDS SUMMARY | 2024-06-25 11:37 | XMS_ITS | Encounter Summary ---
Author Organization [facility] Healthcare Address [address] [place] [address] Care Team Providers Care Hospital Chaplain Name Role Phone Neida Cm MD Primary Care Provider + Reason for Referral * Cardiology (Routine) - Pending Review Specialty Diagnoses / Procedures Referred By Contac t Referred To Contact Diagnoses Typical atrial flutter (HCC) Cardiac pacemaker in situ History of mitral valve replacement with mechanical valve HTN (hypertension), benign Procedures Transthoracic Echo (TTE) Complete W Doppler/CF Edvin Chavez MD [address] [place] [address] Phone: tel: fax: [facility] Cardiology [address] [place] [phone] Phone: tel: fax: Referral ID Status Reason Start Date Expiration Date V isits Requested Visits Authorized [id number] Pending Review 06/25/2024 07/25/2025 1 1 Reason for Visit * Reason Comments Atrial Flutter Hypertension Hyperlipidemia Valve Disorder 6 mo f/u Encounter Details Date Type Department Care Team (Late st Contact Info) Description 06/25/2024 9:30 AM CDT Office Visit [facility] Cardiology [address] [place] [phone] Edvin Chavez MD [address] [place], [place] [id number] Typical atrial flutter (HCC) (Primary Dx); Cardiac pacemaker in situ; History of mitral valve replacement with mechanical valve; Morbid obesity with BMI of 40.0-44.9, adult (HCC); HTN (hypertension), benign; Hyperlipidemia LDL goal <100 Social History Tobacco Use Types Packs/Day Years [...] on file 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 Gender Identity Not on file Sexual Orientation Not on file documented as of this encounter Last Filed Vital Signs Vital Sign Reading Time Taken Comments Blood Pressure 125/75 06/25/2024 9:52 AM CDT Pulse 65 06/25/2024 9:32 AM CDT Temperature - - Respiratory Rate - - Oxygen Saturation 96% 06/25/2024 9:32 AM CDT Inhaled Oxygen Concentration - - Weight 146.1 kg (322 lb) 06/25/2024 9:32 AM CDT Height 190.5 cm (6' 3 ) 06/25/2024 9:32 AM CDT Body Mass Index 40.25 06/25/2024 9:32 AM CDT documented in this encounter Progress Notes * Edvin Chavez MD - 06/25/2024 9:30 AM CDT [facility] DATE OF VISIT: 06/25/2024 CHIEF COMPLAINT Chief Complaint Patient presents with Atrial Flutter Hypertension Hyperlipidemia Valve Disorder 6 mo f/u HPI Orlando Navarro is a 59 y.o. 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 He underwent #[address] Jud[facility] mitral valve replacement along with resection of left atrial vegetation on June 27, 2012 with postoperative A. Fib resolved. 09/06/16 Feeling well. OLSEN at altitude in [place] 9600 feet resolved with descent. No CP, F/C/N/V, bleeding. Manuel warfarin. Denies significant OLSEN. Wt had been up significantly now coming down with diet and activity lost 20 lbs. 07/18/17 Feeling well. No new complaints. Denies chest pain, exertional dyspnea, palpitations, dizziness, near syncope and/or syncope. No edema. Tolerating medications well without difficulty. Seeing CTS in October. NEeds Echo prior to visit. NOt taking ASA. Follow-up note 05/14/2019: He did have fevers and chills about a month ago. He had muscle aches as well. He went to the ER because of shortness of breath. He states he was not tested for the flu. Hissymptoms persisted for several weeks but over the past couple weeks he has been feeling better. He denies any chest pain, shortness breath, syncope, presyncope, paroxysmal nocturnal dyspnea orthopnea, palpitations. Does have some swelling. Follow-up note 05/26/2020: He denies any chest pain, shortness breath, syncope, presyncope, paroxysmal nocturnal dyspnea, orthopnea, palpitations. He has had some swelling. Weight is up. More stress at work. Follow-up note 12/01/2020: He did have COVID a few weeks ago but has since recovered and was minimally symptomatic. He denies any chest pain, shortness breath, syncope, presyncope, paroxysmal nocturnal dyspnea orthopnea, unusual edema or palpitations Follow-up note 06/08/2021: He denies any chest pain, shortness breath, syncope, presyncope, paroxysmal nocturnal dyspnea, orthopnea, edema or palpitations. No bleeding problems Follow-up with NETWORK CONTRACT MANAGER 12/25/2021: He is here for routine follow-up. He has no concerns. He forgot to check his INR before he went on a hunting trip and he is now overdue. He denies any bleeding problems.He regained some lost weight because of how he cooks and eats when he is on hunting trips. He tendsto lose weight over the summer each summer. He seldom has to take furosemide. Follow-up note 05/03/2023: He has some dependent edema at times. No syncope, presyncope, paroxysmalnocturnal dyspnea, chest pain, shortness breath, palpitations Follow-up note 11/08/2023: He was admitted to [facility] found to be in atrial flutter with slow ventricular response. He was transferred to [facility]. Underwent dual-chamber pacemaker implantation andlater underwent cardioversion. He was cardioverted on 10/29/2023. He is back in sinus rhythm at this point and V paced rhythm and he overall states he feels very well. He has lost over 30 lb since last visit. He denies any chest pain, shortness breath, syncope, presyncope, paroxysmal nocturnal dyspnea, orthopnea, edema or palpitations. Follow-up note 06/25/2024: From a cardiac perspective feels okay except from hip pain. He has no chest pain, shortness breath, syncope, presyncope, paroxysmal nocturnal dyspnea, orthopnea, edema palpitations. Bleeding problems. MEDICAL HISTORY Past Medical History: Diagnosis Date Calculus of kidney nephrolithiasis HX OTHER MEDICAL 2013 subacute bacterial endocarditis HX OTHER MEDICAL DVT of right LE Social History Tobacco Use Smoking status: Never Smoker Smokeless tobacco: Never Used Substance Use Topics Alcohol use: Yes Drug use: No Family History Problem Relation Age of Onset Cancer Mother breast Diabetes Father MEDICATIONS HOME MEDICATIONS : lisinopriL (PRINIVIL,ZESTRIL) 10 mg tablet prothrombin time test strips (COAGUCHEK XS) strip warfarin (COUMADIN) 1 mg tablet warfarin (COUMADIN) 5 mg tablet furosemide (LASIX) 20 mg tablet ALLERGIES No Known Allergies REVIEW OF SYSTEMS Review of Systems Constitutional: Positive for weight loss. Negative for decreased appetite, diaphoresis, fever, malaise/fatigue, night sweats and weight gain. HENT: Negative for hearing loss and nosebleeds. Eyes: Negative for blurred vision and pain. Cardiovascular: Negative for chest pain, claudication, dyspnea on exertion, irregular heartbeat, leg swelling, near-syncope, orthopnea, palpitations and syncope. Respiratory: Positive for snoring. Negative for cough, hemoptysis, shortness of breath and wheezing. Endocrine: Negative for cold intolerance and heat intolerance. Hematologic/Lymphatic: Negative for bleeding problem. Does not bruise/bleed easily. Skin: Negative for color change, itching, rash and suspicious lesions. Musculoskeletal: Negative for falls, joint pain, muscle weakness and myalgias. Gastrointestinal: Negative for abdominal pain, heartburn, hematemesis, melena and nausea. Genitourinary: Negative for dysuria, hematuria and nocturia. Neurological: Negative for excessive daytime sleepiness, dizziness, focal weakness, headaches, light-headedness, loss of balance and weakness. Psychiatric/Behavioral: Negative for altered mental status, depression and memory loss. The patientis not nervous/anxious. Allergic/Immunologic: Negative for environmental allergies. PHYSICAL EXAM Vitals BP 125/75 Pulse 65 Ht 190.5 cm (6' 3 ) Wt (!) 146.1 kg (322 lb) SpO2 96% BMI 40.25 kg/m?? Weight: (!) 146.1 kg (322 lb) Height: 190.5 cm (6' 3 ) Body mass index is 40.25 kg/m??. Physical Exam Vitals reviewed. Constitutional: General: He is not in acute distress. Appearance: He is well-developed. He is not diaphoretic. HENT: Head: Normocephalic and atraumatic. Right Ear: External ear normal. Left Ear: External ear normal. Nose: Nose normal. Mouth/Throat: Dentition: Normal dentition. Eyes: General: Lids are normal. No scleral icterus. Conjunctiva/sclera: Conjunctivae normal. Neck: Thyroid: No thyromegaly. Vascular: Normal carotid pulses. No carotid bruit, hepatojugular reflux or JVD. Trachea: No tracheal deviation. Cardiovascular: Rate and Rhythm: Normal rate and regular rhythm. Pulses: Normal pulses and intact distal pulses. Heart sounds: Normal heart sounds, S1 normal and S2 normal. Heart sounds not distant. No murmur heard. No friction rub. No gallop. No S3 or S4 sounds. Comments: [place] mechanical S1, no murmurs Pulmonary: Effort: Pulmonary effort is normal. No respiratory distress. Breath sounds: Normal breath sounds. No wheezing or rales. Chest: Chest wall: No tenderness. Abdominal: General: Bowel sounds are normal. There is no distension. Palpations: Abdomen is soft. There is no mass. Tenderness: There is no abdominal tenderness. There is no guarding or rebound. Musculoskeletal: General: No swelling, tenderness or deformity. Normal range of motion. Cervical back: Normal range of motion and neck supple. Lymphadenopathy: Cervical: No cervical adenopathy. Skin: General: Skin is warm and dry. Coloration: Skin is not pale. Findings: No ecchymosis, erythema, petechiae or rash. Nails: There is no clubbing. Neurological: Mental Status: He is alert and oriented to person, place, and time. Cranial Nerves: No cranial nerve deficit. Motor: No abnormal muscle tone. Coordination: Coordination normal. Psychiatric: Speech: Speech normal. Behavior: Behavior normal. Behavior is cooperative. Judgment: Judgment normal. LABS AND OTHER DIAGNOSTIC TESTS Hospital Outpatient Visit on 2024 Component Date Value Ref Range Status PT 2024 34.9 (H) 9.7 - 13.0 sec Final INR 2024 3.16 (H) 0.90 - 1.20 Final Results for orders placed or performed during the hospital encounter of 04/10/24 Protime-INR Collection Time: 04/10/24 10:50 AM Result Value Ref Range PT 34.9 (H) 9.7 - 13.0 sec INR 3.16 (H) 0.90 - 1.20 EKG 11/08/2023: Normal sinus rhythm, V paced rhythm. Abnormal EKG Personally reviewed EKG, Echocardiogram, stress test, and bloodwork/lipids. 2D echocardiogram 09/20/16 personally reviewed: Conclusions: Normal left ventricular systolic function. No focal wall motion abnormalities. Normal left ventricular size. Definity contrast agent used to visually enhance endocardial wall motion and contractility. Lot Number: [id number]. Mild concentric left ventricular hypertrophy. Diastolic dysfunction is present. Ejection fraction is visually estimated at 70-75 %. Ejection fraction is measured at 75 %. Normal right ventricular systolic function. Mild enlargement of right ventricle. There is mild enlargement of left atrium. Trivial regurgitation of the mitral valve. Mean gradient of 6.50 mmHg. Normal appearing mitral valve prosthesis for valve type and size. Aortic cusps appear mildly sclerotic. Trace aortic valve regurgitation. Mild tricuspid regurgitation. Normal sinus rhythm. Compared with prior echo, no significnat change. 2D echocardiogram Doppler 09/18/2018: Ejection fraction 65% grade 1 diastolic dysfunction, moderate left atrial enlargement, mechanical mitral valve with normal gradients. 2D echo Doppler 10/01/2019 Normal left ventricular systolic function. No focal wall motion abnormalities. Normal left ventricular size. Definity contrast agent used to visually enhance endocardial wall motion and contractility. Lot Number: [id number]. Impaired diastolic relaxation Grade I. Ejection fraction is visually estimated at 60 %. There is moderate enlargement of left atrium. Normal appearing mitral valve mechanical prosthesis for valve type and size. Normal gradients for valve type and size. Technically difficult study with limited views due to obesity. Echo 10/13/2020 Normal left ventricular systolic function. No focal wall motion abnormalities. Normal left ventricular size. Definity contrast agent used to visually enhance endocardial wall motion and contractility. Lot Number: [id number]. Mild concentric left ventricular hypertrophy. Diastolic dysfunction is present. Ejection fraction is visually estimated at 55 %. Ejection fraction is measured at 64 %. There is moderate enlargement of left atrium. Trivial regurgitation of the mitral valve. There is no hemodynamically significant mitral stenosis by Doppler. Mean gradient of 4.40 mmHg. Valve area of 3 cm2. Normal appearing mitral valve prosthesis for valve type and size. Normal gradients for valve type and size. No evidence of hemodynamically significant aortic stenosis by Doppler. Aortic cusps appear mildly sclerotic. Trileaflet aortic valve. No aortic regurgitation. Estimated peak RVSP is 34 mmHg. Mild to moderate tricuspid regurgitation. Mild pulmonic regurgitation. Compared to an echo done on 10/01/2019, no significant changes seen. Echo 12/24/22 Normal left ventricular systolic function. No focal wall motion abnormalities. Mild concentric left ventricular hypertrophy. Mild enlargement of left ventricle cavity. Normal global left ventricular systolic function. Normal left ventricular diastolic function. Ejection fraction is visually estimated at 60-65 %. Ejection fraction is measured at 60 %. Global Longitudinal Strain is -14 %. GLS is abnormal. There is mild enlargement of left atrium. Mild mitral valve regurgitation. Mean gradient of 8.00 mmHg. Normal appearing mitral valve prosthesis for valve type and size. Mild tricuspid regurgitation. Normal sinus rhythm. ASSESSMENT Diagnoses and all orders for this visit: History of mitral valve replacement with mechanical valve (Primary) Functioning normally at last evaluation USP current use of anticoagulant therapy No bleeding problems Dyslipidemia Above goal HTN (hypertension), benign At goal Morbid obesity with BMI of 40.0-44.9, adult (CMS/HCC) worse History of COVID-19 Paroxysmal atrial flutter Status post cardioversion October 29, 2023: Remains in sinus rhythm Cardiac pacemaker in-situ Functioning normally PLAN/RECOMMENDATIONS 2D echocardiogram with Doppler because of his atrial flutter, V pacing, pacemaker and mechanical mitral valve Cholesterol today shows an LDL 152. Advised statin therapy or something for cholesterol but he wishes to try diet and exercise 1st. Continue warfarin for anticoagulation and mechanical valve. Standing order for INR Continue lisinopril for hypertension Dietary/ lifestyle modification for weight loss. He is otherwise stable. Follow-up in 6 months or sooner as clinically indicated Leonardo Chavez MD, [facility] documented in this encounter Miscellaneous Notes * Addendum Note - Alla Miramontes MA - 06/25/2024 9:30 AM CDTAddended by: ALLA MIRAMONTES on: 06/25/2024 10:04 AM Modules accepted: Orders documented in this encounter Plan of Treatment Scheduled Orders Name Type Priority Associated Diagnoses Orde r Schedule Transthoracic Echo (TTE) Complete W Doppler/CF Echocardiography Routine Typical atrial flutter (HCC) Cardiac pacemaker in situ History of mitral valve replacement with mechanical valve HTN (hypertension), benign Expected: 06/25/2024, Expires: 06/25/2025 documented as of this encounter Procedures Procedure Name Priority Date/Time Associated Diagnosis Comments POCT LIPID PANEL Routine 06/25/2024 9:34 AM CDT Hyperlipidemia LDL goal <100 documented in this encounter Results * POCT lipid panel (06/25/2024 9:34 AM CDT) Cholesterol, POC 228 mg/dL HDL, POC 34 mg/dL Triglycerides, POC 209 mg/dL LDL Cholesterol POC 152 mg/dL Chol/HDL Ratio, POC 4.5 Non-HDL Cholesterol, POC 194 mg/dL Cholesterol Total, POC 228 mg/dL Capillary blood 06/25/2024 9 :34 AM CDT us Edvin Chavez MD POINT OF CARE TEST ORDERA BLES Final Result documented in this encounter Visit Diagnoses Diagnosis Typical atrial flutter (HCC)- Primary Cardiac pacemaker in situ History of mitral valve replacement with mechanical valve Morbid obesity with BMI of 40.0-44.9, adult (HCC) HTN (hypertension), benign Essential hypertension, benign Hyperlipidemia LDL goal <100 Other and unspecified hyperlipidemia documented in this encounter Care Teams Hospital Chaplain Relationship Specialty Start Date End Date Neida Cm MD [facility] [address] [place] [address] PCP - General Family Medicine 06/25/24 documented as of this encounter
--- OUTSIDE RECORDS SUMMARY | 2024-06-25 11:37 | XMS_ITS | Referral Summary ---
Author Organization [facility] [address] [place] [phone] Care Team Providers Care Kiln Transfer Operator Name Role Phone Neida Cm MD Primary Care Provider + Encounters Date Type Department Care Team Description 06/25/2024 Telephone [facility] Cardiology [address] [place] [address] [place] [phone] Edvin Chavez MD 06/25/2024 9:30 AM CDT Office Visit [facility] Cardiology [address] [place] [address] [place] [phone] Edvin Chavez MD Typical atrial flutter (HCC) (Primary Dx); Cardiac pacemaker in situ; History of mitral valve replacement with mechanical valve; Morbid obesity with BMI of 40.0-44.9, adult (HCC); HTN (hypertension), benign; Hyperlipidemia LDL goal <100 06/19/2024 Telephone [facility] Cardiology [address] [place] [address] [place] [phone] Edvin Chavez MD 05/05/2024 7:45 AM SYSTEMS MANAGER Ancillary Procedure [facility] Cardiology [address] [facility] [address] [place] [phone] Cardiac pacemaker in situ [Z95.0] (Primary Dx); Atrial flutter, unspecified type (HCC); SSS (sick sinus syndrome) (HCC); Bradycardia 05/01/2024 Telephone [facility] Cardiology [address] [place] [address] [place] [phone] Edvin Chavez MD Med Refill 2024 Anticoagulation Visit [facility] Cardiology [address] [place] [address] Edvin Napoles RN Presence of prosthetic heart valve (Primary Dx) 2024 10:50 AM SYSTEMS MANAGER - 2024 11:59 PM SYSTEMS MANAGER Hospital Encounter [address] [address] Discharge Disposition: Discharge to home or self care 2024 10:30 AM SYSTEMS MANAGER Lab [facility] Outpatient Lab at [address] [phone] Dyslipidemia (Primary Dx) 04/03/2024 Telephone [facility] Medical [facility] Cardiology [address] [place] [phone] Edvin Chavez MD INR test strips from Last 3 Months Allergies No known active allergies Medications prothrombin [...] Dx; SSS, Talat, Pauses, Aflutter. DOI 09/13/2023-Anthony. Truzipronik remote monitoring. 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 Gender Identity Not on file Sexual Orientation Not on file Last Filed Vital Signs Vital Sign Reading [...] 06/25/2024 9:32 AM CDT Plan of Treatment Not on file Medical Devices Implanted Type Area Sizing Machine And Drier Operator Device Identifier Shelf Expiration Date Model / Serial / Lot [employer] Solia S 53cm Steroid Elute Bipolar Active Fixation Endocardial [id number] - [id number] - [id number] Implanted:Qty: 1 on 09/13/2023 by Ramonita Cruz MD at Left: Chest [employer] Inc [id number] 07/01/2025 [id number] / [id number] / Description:RA Lead [employer] Promri Solia S 60cm Lead Pacing Steroid Eluting [id number] - [id number] - [id number] Implanted:Qty: 1 on 09/13/2023 by Ramonita Cruz MD at Left: Chest [employer] Inc [id number] 07/01/2025 [id number] / [id number] / Description:RV Lead Medtronic Inc Tyrx Absorbable Antibacterial Envelope-Med 2.7x2.5in [id number] - [id number] Implanted:Qty: 1 on 09/13/2023 by Ramonita Cruz MD at Left: Chest Med[employer]onic Inc 06/14/2024 [id number] / / [id number] Biotronik Inc Pacemaker Implantable Amvia Edge Dual Chamb Rate-Responsive [id number] - [id number] - [id number] Implanted:Qty: 1 on 09/13/2023 by Ramonita Cruz MD at Left: Chest [employer] Inc [id number] 01/01/2025 [id number] / [id number] / Procedures Procedure Name Priority Date/Time Associated Diagnosis Comments POCT LIPID PANEL Routine 06/25/2024 9:34 AM CDT Hyperlipidemia LDL goal <100 DEVICE CHECK - REMOTE Routine 05/05/2024 7:47 AM SYSTEMS MANAGER Atrial flutter, unspecified type (HCC) SSS (sick sinus syndrome) (HCC) Bradycardia PROTIME-INR Routine 2024 10:50 AM SYSTEMS MANAGER from Last 3 Months Results * POCT [...] DEVICE CHECK - REMOTE (05/05/2024 7:47 AM SYSTEMS MANAGER) Anatomical Region Laterality Modality Other Narrative 05/07/2024 2:38 PM SYSTEMS MANAGER Biotronik Amvia Edge Dual Pacemaker. Dx; SSS, Talat, Pauses, Aflutter. DOI 09/13/2023-Anthony. Biotronik remote. Routine DDD Pacemaker Remote. Transmission attached. Battery status: Ok, 90% remaining battery life to RAMSEY. Stable lead impedances, pacing and sensing thresholds. Presenting rhythm: AP-BOX SHOOK PATCHER. AP-66%, BOX SHOOK PATCHER-100%. 406 AT/AF episodes noted, longest episode was 4 minutes in duration, IEGM demonstrates Aflutter. AF [place] 0.3%. No Ventricular high rate episodes detected. Medications: Coumadin. See scanned report. Office pacemaker follow up: due in 9-12 months. Biotronik remote f/u 08/11/2024. Doris Spencer, RN Edvni Chavez MD [facility] Final Result * (ABNORMAL) Protime-INR (2024 10:50 AM SYSTEMS MANAGER) PT 34.9(H) 9.7 - 13.0 sec INR 3.16(H) 0.90 - 1.20 [facility] Comment: Interpretive data Oral anticoagulant therapeutic ranges: Venous thromboembolism prophylaxis or treatment: 2.0-3.0 CARDIOLOGY Standard range: 2.0-3.0 High-intensity range: 2.5-3.5 Refer to indication-specific guidelines for appropriate target ranges for prosthetic heart valve replacement. Current interpretive data was last revised on 2019. Blood 2024 10:5 0 AM SYSTEMS MANAGER 2024 3:39 PM SYSTEMS MANAGER Edvin Chavez MD LAB BLOOD ORDERABLES Erica fuller Result [facility] [address] Department [place] [address] from Last 3 Months Insurance [facility] [id number] [facility] [id number] [facility] [id number] Advance Directives For more information, please contact: [phone] * Full Code (Latest Code Status on File) Date Activated Date Inactivated Comments 09/12/2023 11:09 AM 09/14/2023 4:23 PM Care Teams Kiln Transfer Operator Relationship Specialty Start Date End Date Neida Cm MD [address] [place] [address] [address] PCP - General Family Medicine 06/25/24
--- OUTSIDE RECORDS SUMMARY | 2024-06-25 11:37 | XMS_ITS ---
Author Organization Unknown Medications Medication Instructions Effective Dates (start - sto p) Status warfarin sodium 5 MG Oral Tablet 00:00:00Z - Completed warfarin sodium 5 MG Oral Tablet T00:00:00Z - Completed lisinopril 10 MG Oral Tablet [id number] 0:00:00Z - Completed prednisone 10 MG Oral Tablet [id number] 0:00:00Z - Completed lisinopril 10 MG Oral Tablet [id number] 0:00:00Z - Completed warfarin sodium 5 MG Oral Tablet :00:00Z - Completed lisinopril 10 MG Oral Tablet [id number] 0:00:00Z - Completed warfarin sodium 5 MG Oral Tablet 00:00:00Z - Completed warfarin sodium 5 MG Oral Tablet :00:00Z - Completed lisinopril 10 MG Oral Tablet [id number] 0:00:00Z - Completed warfarin sodium 5 MG Oral Tablet 00:00:00Z - Completed warfarin sodium 5 MG Oral Tablet :00:00Z - Completed warfarin sodium 5 MG Oral Tablet :00:00Z - Completed warfarin sodium 5 MG Oral Tablet 00:00:00Z - Completed Patient Care team information Name Category Status Period Participants - - Proposed period not known -
== END 2024-06-25 10:21 | disposition home or self-care (01) ==
PROVIDERS: PCP Family Medicine; Visit Provider Family Medicine
DX: M16.0 Bilateral primary osteoarthritis of hip (principal)
CPT/HCPCS: 73521

== ENCOUNTER 2025-01-18 08:29 | Outpatient (CLI) | payer OTHER, SELFPAY | END 2025-01-18 08:30 | disposition home or self-care (01) | LOC: ANHAUDIO 08:30 | PROVIDERS: PCP Family Medicine; Visit Provider Family Medicine | DX: H61.20 Impacted cerumen, unspecified ear (principal); H90.72 Mixed conductive and sensorineural hearing loss, unilateral, left ear, with unrestricted hearing on the contralateral side | CPT/HCPCS: 92557; 92567 ==